=== PATIENT | female | born 1960 | race Caucasian/White ===

== ENCOUNTER 2017-02-03 13:10 | Inpatient (IN) | payer SELFPAY ==
[~2017-02-03] VITALS: Ht 157.5 cm; Wt 56.6 kg
[2017-02-03] VITALS (8 sets, daily range): BP systolic 105–140; BP diastolic 55–67; PULSE 80–94; RESP 20–30; TEMP 97.4; O2SAT 93–100
[~2017-02-03 13:10] MED LIST: ASPI81TA82 PO; GABA100C2 PO; HYOS0.129 SL; OMPR20CCR PO; PERC5TAB12 PO; PROZ40CA PO; SUCR1 PO; TRAZ100 PO; TYLCOD5S PO; XANA1TAB6 PO; ZOFR8TAB PO
--- NOTE | 2017-02-03 14:24 | PD ---
HPI Chief Complaint: Respiratory Symptoms Time Seen by Provider: 14:15 Travel History International Travel<30 days: No Contact w/Intl Traveler<30days: No Traveled to known affect area: No History of Present Illness HPI 56-year-old female with reported history of COPD, smoker, here for evaluation of shortness of breath and left mid/upper back pain. The patient reports that she fell onto her back about a week ago, and since that time she has been having left mid/upper back pain. She reports that for the last 3 days she has been having shortness of breath that is not improving with her Ventolin. No fevers. No cough. Patient is very tearful. She appears to be in significant respiratory distress, however when answering questions, she answers in full sentences and does not appear to be in distress when speaking. PFSH Past Medical History Anxiety: Yes Depression: No Cancer: Yes (STOMACH CA) Cardiovascular Problems: No Cerebrovascular Accident: No Diminished Hearing: No Endocrine: No Gastrointestinal Disorders: Yes GERD: No Genitourinary: No Hiatal Hernia: No Musculoskeletal: No Neurologic: Yes (FIBROMYALGIA) Psychiatric: Yes (PTSD) Reproductive: No Respiratory: Yes (COPD) Migraines: No Seizures: No Ulcer: Yes (PRECANCEROUS CELLS, HUDSON'S ESOPHAGITIS. HX H PYLORI) Tetanus Vaccination: > 5 Years Influenza Vaccination: Yes ?: Not Menopausal: Yes Past Surgical History Abdominal Surgery: Yes (PARTIAL GASTRECTOMY / JAIRON) AICD: No Appendectomy: Yes Arteriovenous Shunt: No Cardiac Surgery: No Cholecystectomy: Yes Ear Surgery: No Endocrine Surgery: No Eye Surgery: No Genitourinary Surgery: No Gynecologic Surgery: Yes (HYSTERECTOMY) Hysterectomy: Yes Insulin Pump: No Joint Replacement: No Neurologic Surgery: No Oral Surgery: No Pacemaker: No Thoracic Surgery: No Other Surgery: Yes (FACIAL RECONSTRUCTION) Social History Alcohol Use: Yes (SOCIAL) Tobacco Use: Yes (1/2 PPD) Substance Use: No Allergies-Medications (Allergen,Severity, Reaction): Coded Allergies: Flexeril (Verified Allergy, Severe, Fatigue, 02/03/17) Penicillin (Verified Allergy, Unknown, does not know, 02/03/17) Tetracycline (Verified Allergy, Unknown, does not know, 02/03/17) Levaquin (Verified Adverse Reaction, Severe, Hallucinations, 02/03/17) Reported Meds & Prescriptions Reported Meds & Active Scripts Active Reported Ventolin Hfa 18 GM Inh (Albuterol Sulfate) 90 Mcg/Act Aer 1 Puff INH Q4H PRN Xanax (Alprazolam) 1 Mg Tab 1 Mg PO BID PRN Aspirin 81 Mg Chew 81 Mg CHEW DAILY Prozac (Fluoxetine HCl) 40 Mg Cap 40 Mg PO BID Neurontin (Gabapentin) 100 Mg Cap 100 Mg PO BID Levsin (Hyoscyamine Sulfate) 0.125 Mg Tab 0.125 Mg PO Q6H Prilosec (Omeprazole Magnesium) 20 Mg Tab 1 Cap PO DAILY Sucralfate 1 Gm Tab 1 Gm PO BID on empty stomach Trazodone (Trazodone HCl) 100 Mg Tablet 100 Mg PO HS Review of Systems Except as stated in HPI: all other systems reviewed are Neg Physical Exam Narrative GENERAL: Well-developed, thin, appears to be in respiratory distress with tachypnea and deep inspiratory efforts, however when answering questions, this respiratory distress/effort seems to improve SKIN: Focused skin assessment warm/dry. HEAD: Atraumatic. Normocephalic. EYES: Pupils equal and round. No scleral icterus. No injection or drainage. ENT: Mucous membranes pink and moist. NECK: Trachea midline. No JVD. CARDIOVASCULAR: Regular rate and rhythm. No murmur appreciated. RESPIRATORY: No accessory muscle use. Clear to auscultation. Breath sounds equal bilaterally. Appears to be in respiratory distress with tachypnea and deep inspiratory efforts, however when answering questions, this respiratory distress/effort seems to improve GASTROINTESTINAL: Abdomen soft, non-tender, nondistended. MUSCULOSKELETAL: No obvious deformities. No clubbing. No cyanosis. No edema. Left upper/posterior rib tenderness without step-off, without crepitus, without paradoxical chest wall movement. No midline vertebral step off or tenderness. NEUROLOGICAL: Awake and alert. No obvious cranial nerve deficits. Motor grossly within normal limits. Normal speech. PSYCHIATRIC: Appropriate mood and affect; insight and judgment normal. Data Data Last Documented VS Vital Signs Date Time Temp Pulse Resp B/P Pulse Ox O2 Delivery O2 Flow Rate FiO2 02/03/17 15:24 89 30 140/56 100 Room Air 02/03/17 13:23 97.4 Orders Complete Blood Count With Diff (02/03/17 14:19) Comprehensive Metabolic Panel (02/03/17 14:19) Iv Access Insert/Monitor (02/03/17 14:19) Ecg Monitoring (02/03/17 14:19) Oximetry (02/03/17 14:19) Oxygen Administration (02/03/17 14:19) Chest, Single Ap (02/03/17 14:19) Ct Pulmonary Angiogram (02/03/17 14:19) Sodium Chloride 0.9% Flush (Ns Flush) (02/03/17 14:30) Methylprednisolone So Succ Inj (Solumedr (02/03/17 14:30) Albuterol-Ipratropium Neb (Duoneb Neb) (02/03/17 14:30) Morphine Inj (Morphine Inj) (02/03/17 14:30) Electrocardiogram (02/03/17 ) Ckmb (Isoenzyme) Profile (02/03/17 15:22) Troponin I (02/03/17 15:22) Iohexol 350 Inj (Omnipaque 350 Inj) (02/03/17 15:46) CKMB (02/03/17 14:30) CKMB% (02/03/17 14:30) Potassium Chlor 20 Meq Premix (Kcl 20 Me (02/03/17 16:15) Potassium Chloride (Kcl) (02/03/17 16:15) Labs Laboratory Tests Test 02/03/17 14:30 White Blood Count 18.6 TH/MM3 Red Blood Count 4.92 MIL/MM3 Hemoglobin 14.1 GM/DL Hematocrit 41.7 % Mean Corpuscular Volume 84.8 FL Mean Corpuscular Hemoglobin 28.7 PG Mean Corpuscular Hemoglobin 33.9 % Concent Red Cell Distribution Width 15.4 % Platelet Count 349 TH/MM3 Mean Platelet Volume 7.8 FL Neutrophils (%) (Auto) 75.7 % Lymphocytes (%) (Auto) 15.8 % Monocytes (%) (Auto) 7.2 % Eosinophils (%) (Auto) 0.9 % Basophils (%) (Auto) 0.4 % Neutrophils # (Auto) 14.1 TH/MM3 Lymphocytes # (Auto) 2.9 TH/MM3 Monocytes # (Auto) 1.3 TH/MM3 Eosinophils # (Auto) 0.2 TH/MM3 Basophils # (Auto) 0.1 TH/MM3 CBC Comment DIFF FINAL Differential Comment Sodium Level 141 MEQ/L Potassium Level 2.2 MEQ/L Chloride Level 103 MEQ/L Carbon Dioxide Level 22.8 MEQ/L Anion Gap 15 MEQ/L Blood Urea Nitrogen 4 MG/DL Creatinine 0.76 MG/DL Estimat Glomerular Filtration 78 ML/MIN Rate Random Glucose 87 MG/DL Calcium Level 8.4 MG/DL Total Bilirubin 0.3 MG/DL Aspartate Amino Transf 30 U/L (AST/SGOT) Alanine Aminotransferase 16 U/L (ALT/SGPT) Alkaline Phosphatase 163 U/L Total Creatine Kinase 184 U/L Creatine Kinase MB 1.4 NG/ML Troponin I LESS THAN 0.02 NG/ML Total Protein 7.1 GM/DL Albumin 3.1 GM/DL [facility] Medical Decision Making Medical Screen Exam Complete: Yes Emergency Medical Condition: Yes Medical Record Reviewed: Yes Differential Diagnosis COPD exacerbation, pneumonia, rib fracture, PE, Narrative Course Initial vital signs show heart rate 80, blood pressure 105/55, pulse ox 97% on room air, oral temp of 97.4F. Repeat vital signs show heart rate 89, blood pressure 140/56, pulse ox 100% on room air. CBC shows WBC 18.6, hemoglobin 14.1, hematocrit 41.7, platelets 349, neutrophils 75.7%. CMP is remarkable for potassium 2.2, otherwise unremarkable. Cardiac enzymes are negative. Chest x-ray: Normal exam. CT pulmonary angiogram: CONCLUSION: Normal examination. Patient written for 40 mEq of IV potassium and 20 mEq of oral potassium. Patient was given 3 DuoNeb treatments and IV Solu-Medrol. On reassessment she was made aware of all findings. She is still very tachypneic until when she speaks when her tachypnea seems to resolve and she is able to speak full sentences. Again her lung sounds are clear. Patient admits to feeling somewhat anxious and that she is out of her Xanax. She will be admitted for further treatment and evaluation of hypokalemia, tachypnea, and dyspnea. Case discussed with the patient's primary care physician Dr. Betancourt who will admit the patient to his service. Diagnosis Primary Impression: Dyspnea Qualified Code: R06.00 - Dyspnea, unspecified type Additional Impressions: Hypokalemia Tachypnea Melvin Harvey MD Feb 03, 2017 14:24
[2017-02-03] MEDS ORDERED: VENTAER INH (14:26)
[2017-02-03] MEDS ORDERED: SUCR1TAB PO (14:26)
[2017-02-03] MEDS ORDERED: NEUR100C PO (14:26)
[2017-02-03] MEDS ORDERED: TRAZ100T6 PO (14:26)
[2017-02-03] MEDS ORDERED: PRIL20TA2 PO (14:26)
[2017-02-03] MEDS ORDERED: XANA1TAB2 PO (14:26)
[2017-02-03] MEDS ORDERED: LEVS0.123 PO (14:26)
[2017-02-03] MEDS ORDERED: PROZ40CA PO (14:26)
[2017-02-03] MEDS ORDERED: ASPI81CH CHEW (14:26)
[2017-02-03] MEDS ORDERED: SODIUM CHLORIDE 0.9% FLUSH 10 ML FLUSH IVF PRN ×2 (14:30→16:45)
[2017-02-03] MEDS: RESP: ALBUTEROL 2.5 MG/IPRATROPIUM 0.5 MG NEB (SCH) INH (14:30)
[2017-02-03] MEDS ORDERED: MORPHINE SULFATE 8 MG/ML INJ IV PUSH ONE ×2 (14:30→16:45)
[2017-02-03] MEDS ORDERED: methylPREDNISolone SOD SUCC 125 MG/2 ML VIAL IVP ONE (14:30)
[2017-02-03 14:40] LABS: AUTOMATED NEUTROPHIL # 14.1 TH/MM3 (1.8-7.7); BASOPHIL # 0.1 TH/MM3 (0-0.2); BASOPHIL % 0.4 % (0.0-2.0); EOSINOPHIL # 0.2 TH/MM3 (0-0.4); EOSINOPHIL % 0.9 % (0.0-4.0); HEMATOCRIT 41.7 % (35.0-46.0); LYMPH % 15.8 % (9.0-44.0); LYMPHOCYTE # 2.9 TH/MM3 (1.0-4.8); MEAN CELL VOLUME 84.8 FL (80.0-100.0); MEAN CORPUSCULAR HEMOGLOBIN 28.7 PG (27.0-34.0); MEAN CORPUSCULAR HGB CONC 33.9 % (32.0-36.0); MONO % 7.2 % (0.0-8.0); NEUT % 75.7 % (16.0-70.0); PLATELET COUNT 349 TH/MM3 (150-450); RED BLOOD COUNT 4.92 MIL/MM3 (4.00-5.30); RED CELL DISTRIBUTION WIDTH 15.4 % (11.6-17.2); WHITE BLOOD COUNT 18.6 TH/MM3 (4.0-11.0)
--- NOTE | 2017-02-03 14:46 | RADRPT ---
EXAM DATE/TIME: 02/03/2017 14:26 [facility] COMPARISON: CHEST SINGLE AP, January 10, 2015, 21:27. CHEST PA & LAT, March 29, 2015, 19:05. INDICATIONS : Short of breath MEDICAL HISTORY : Chronic obstructive pulmonary disease. Fibromyalgia, barretts esophagitis SURGICAL HISTORY : None. ENCOUNTER: Initial ACUITY: 3 days PAIN SCORE: 0/10 LOCATION: Bilateral chest FINDINGS: A single view of the chest demonstrates the lungs to be symmetrically aerated without evidence of mas s, infiltrate or effusion. The cardiomediastinal contours are unremarkable. Osseous structures are intact. CONCLUSION: Normal examination. Celestine Beth MD on February 03, 2017 at 14:44 Board Certified Radiologist. This report was verified electronically.
[2017-02-03 15:03] LABS: HEMO FLAGS DIFF FINAL
[2017-02-03 15:16] LABS: ALKALINE PHOSPHATASE 163 U/L (45-117); ALT (GPT) 16 U/L (10-53); ANION GAP 15 MEQ/L (5-15); AST (GOT) 30 U/L (15-37); BICARBONATE 22.8 MEQ/L (21.0-32.0); BLOOD UREA NITROGEN 4 MG/DL (7-18); CHLORIDE 103 MEQ/L (98-107); GLOMERULAR FILTRATION RATE 78 ML/MIN (>89); SODIUM (NA) 141 MEQ/L (136-145); TOTAL BILIRUBIN ADULT 0.3 MG/DL (0.2-1.0)
[2017-02-03 15:18] LABS: POTASSIUM 2.2 MEQ/L (3.5-5.1)
[2017-02-03] MEDS ORDERED: IOHEXOL 350 MG/ML 10 ML VIAL (for RAD DIAG) IV ONE (15:46)
--- NOTE | 2017-02-03 15:53 | RADRPT ---
EXAM DATE/TIME: 02/03/2017 15:29 This report includes an Addendum and supersedes previous reports for this exam. [facility] COMPARISON: No previous studies available for comparison. INDICATIONS : Short of breath. IV CONTRAST: 65 cc Omnipaque 350 (iohexol) IV RADIATION DOSE: 6.34 CTDIvol (mGy) MEDICAL HISTORY : Chronic obstructive pulmonary disease. Stomach cancer. Barretts esophagus. SURGICAL HISTORY : Cholecystectomy. Hysterectomy.Partial gastrectomy. ENCOUNTER: Initial ACUITY: 3 days PAIN SCALE: 0/10 LOCATION: chest TECHNIQUE: Volumetric scanning of the chest was performed using a pulmonary embolism protocol MIP images were re constructed. Using automated exposure control and adjustment of the mA and/or kV according to patien t size, radiation dose was kept as low as reasonably achievable to obtain optimal diagnostic quality images. DICOM format image data is available electronically for review and comparison. Follow-up recommendations for incidentally detected pulmonary nodules are based at a minimum on nodul e size and patient risk factors according to Fleischner Society Guidelines. FINDINGS: PULMONARY ARTERIES: No filling defects are seen in the pulmonary arteries through the segmental level. LUNGS: There is no consolidation or pneumothorax . No concerning pulmonary nodule is visualized. PLEURAE: There is no pleural thickening or pleural effusion. MEDIASTINUM: There is good visualization of the great vessels of the middle mediastinum. No evidence of mediastin al or hilar adenopathy/mass. MUSCULOSKELETAL: Within normal limits for patient age. MISCELLANEOUS: The visualized upper abdominal organs demonstrate no acute abnormality. CONCLUSION: Normal examination. Celestine Beth MD on February 03, 2017 at 15:51 Board Certified Radiologist. This report was verified electronically. ADDENDUM: The patient has numerous healed fractures in the left anterior chest wall, all clearly chronic. Celestine Beth MD on February 03, 2017 at 16:36 Board Certified Radiologist. This report was verified electronically.
[2017-02-03 16:03] LABS: CREATINE KINASE 184 U/L (26-192)
[2017-02-03] MEDS ORDERED: POTASSIUM CHLORIDE 20 MEQ CONTROLLED RELEASE TAB PO ONE (16:15)
[2017-02-03 16:16] LABS: CKMB 1.4 NG/ML (0.5-3.6)
[2017-02-03] MEDS: POTASSIUM CHLOR 20 MEQ PREMIX 100 ML IV SCH ×2 (16:18→19:31)
--- NOTE | 2017-02-03 18:23 | RADRPT ---
EXAM DATE/TIME: 02/03/2017 15:29 [facility] COMPARISON: CHEST PA & LAT, January 03, 2016, 20:20. CT PULMONARY ANGIOGRAM, February 03, 2017, 15:29. INDICATIONS : Mid back pain. RADIATION DOSE: ; Reconstructed from previous dataset, no dose MEDICAL HISTORY : None Chronic obstructive pulmonary disease. Stomach cancer. Barretts esophagus. SURGICAL HISTORY : Cholecystectomy. Hysterectomy.Partial gastrectomy. ENCOUNTER: Initial ACUITY: 3 days PAIN SCALE: 4/10 LOCATION: spine TECHNIQUE: Volumetric scanning of the thoracic spine was performed. Multiplanar reconstructions in the sagittal , coronal and oblique axial planes were performed. Using automated exposure control and adjustment o f the mA and/or kV according to patient size, radiation dose was kept as low as reasonably achievable to obtain optimal diagnostic quality images. DICOM format image data is available electronically f or review and comparison. FINDINGS: There is a mild superior endplate compression fracture of the T12 vertebral body identified. There is mild disc space narrowing and multilevel anterior osteophyte formation noted. Bone density is decrea sed. There is no canal or definite foraminal stenosis. CONCLUSION: 1. Acute to subacute appearing compression fracture of the T12 vertebral body superior endplate with mild loss of vertebral body height. Blas Suazo MD on February 03, 2017 at 18:20 Board Certified Radiologist. This report was verified electronically.
[2017-02-03] MEDS: LORazepam 0.5 MG TAB PO PRN (20:49)
[2017-02-03] MEDS: ACETAMINOPHEN/HYDROcodone 325 MG/5 MG TAB PO PRN (20:49)
[2017-02-03] MEDS: SODIUM CHLORIDE 0.9% FLUSH 10 ML FLUSH IV FLUSH SCH (21:00)
[2017-02-03] MEDS ORDERED: POTASSIUM CHLORIDE 25 MEQ EFFERVESCENT TAB PO ONE (23:45)
[2017-02-04] VITALS (7 sets, daily range): BP systolic 97–126; BP diastolic 55–87; PULSE 72–96; RESP 18–20; TEMP 97–98.1; O2SAT 91–96
[2017-02-04] MEDS: ACETAMINOPHEN/HYDROcodone 325 MG/5 MG TAB PO PRN ×4 (01:24→16:09)
[2017-02-04] MEDS: LORazepam 0.5 MG TAB PO PRN ×2 (04:13→17:38)
[2017-02-04] MEDS: SODIUM CHLORIDE 0.9% FLUSH 10 ML FLUSH IV FLUSH SCH ×2 (08:33→20:59)
[2017-02-04] MEDS ORDERED: MISCELLANEOUS PHARMACY INFORMATION OTHER ONE (09:00)
[2017-02-04 10:05] LABS: POTASSIUM 3.3 MEQ/L (3.5-5.1)
[2017-02-04 12:15] LABS: HEMATOCRIT 38.1 % (35.0-46.0); MEAN CELL VOLUME 86.5 FL (80.0-100.0); MEAN CORPUSCULAR HEMOGLOBIN 28.6 PG (27.0-34.0); MEAN CORPUSCULAR HGB CONC 33.1 % (32.0-36.0); PLATELET COUNT 272 TH/MM3 (150-450); RED CELL DISTRIBUTION WIDTH 16.4 % (11.6-17.2); REVIEW FLAG FINAL; WHITE BLOOD COUNT 16.9 TH/MM3 (4.0-11.0)
--- NOTE | 2017-02-04 15:35 | RADRPT ---
EXAM DATE/TIME: 02/04/2017 15:38 [facility] COMPARISON: No previous studies available for comparison. INDICATIONS : Fracture. MEDICAL HISTORY : Gastroparesis. Ca's esophagus. SURGICAL HISTORY : Cholecystectomy. Appendectomy. Hysterectomy. Gastroplasty. Tonsils. Jaw reconstruction. ENCOUNTER: Subsequent ACUITY: 2 day PAIN SCORE: 6/10 LOCATION: mid back. TECHNIQUE: Multiplanar multisequence MRI of the thoracic spine was performed. FINDINGS: VERTEBRA: There is mild fracture along the superior endplate at T12. Slight retropulsion of posterior fragments but no canal stenosis. There is edema along the endplate at T12. No other fractures are seen. The sp aces are maintained. Homogeneous marrow signal. ALIGNMENT: Normal. CORD: Normal position and configuration. T1-T2: Normal. T2-T3: The thecal sac has a normal diameter. No evidence of disc bulge or protrusion. T3-T4: The thecal sac has a normal diameter. No evidence of disc bulge or protrusion. T4-T5: The thecal sac has a normal diameter. No evidence of disc bulge or protrusion. T5-T6: The thecal sac has a normal diameter. No evidence of disc bulge or protrusion. T6-T7: The thecal sac has a normal diameter. No evidence of disc bulge or protrusion. T7-T8: The thecal sac has a normal diameter. No evidence of disc bulge or protrusion. T8-T9: The thecal sac has a normal diameter. No evidence of disc bulge or protrusion. T9-T10: The thecal sac has a normal diameter. No evidence of disc bulge or protrusion. T10-T11: The thecal sac has a normal diameter. No evidence of disc bulge or protrusion. T11-T12: Mild broad-based disc bulge without canal stenosis. T12-L1: The thecal sac has a normal diameter. No evidence of disc bulge or protrusion. CONCLUSION: 1. Mild superior endplate compression fracture at T12 which is acute/subacute with minimal retropulsi on of posterior fragments but no significant canal stenosis. 2. Mild broad-based bulge at T11-12 without canal stenosis. 3. The remainder of the thoracic spine is normal. Joni Sky MD on February 04, 2017 at 15:25 Board Certified Radiologist. This report was verified electronically.
[2017-02-04] MEDS ORDERED: RESP: ALBUTEROL 2.5 MG/3 ML NEB (PRN) INH (15:45)
--- NOTE | 2017-02-04 15:46 | HHI.HP ---
History of Present Illness Service Family medicine Primary Care Physician Yuval Betancourt, DO Admission Diagnosis dyspnea, hypokalemia, tachypnea Diagnoses: History of Present Illness 56-year-old female with reported history of COPD, smoker, here for evaluation of shortness of breath and left mid/upper back pain. The patient reports that she fell onto her back about a week ago, and since that time she has been having left mid/upper back pain. She reports that for the last 3 days she has been having shortness of breath that is not improving with her Ventolin. No fevers. No cough. Review of Systems Constitutional: COMPLAINS OF: Fatigue, DENIES: Fever, Weight loss Respiratory: COMPLAINS OF: Wheezing, Shortness of breath, DENIES: Cough Cardiovascular: DENIES: Chest pain, Palpitations, Lower Extremity Edema Gastrointestinal: DENIES: Abdominal pain, Constipation, Diarrhea Genitourinary: DENIES: Urinary incontinence, Dysuria Neurologic: COMPLAINS OF: Poor Balance Psychiatric: COMPLAINS OF: Anxiety Past Family Social History Allergies: Coded Allergies: Flexeril (Verified Allergy, Severe, Fatigue, 02/03/17) Penicillin (Verified Allergy, Unknown, does not know, 02/03/17) Tetracycline (Verified Allergy, Unknown, does not know, 02/03/17) Levaquin (Verified Adverse Reaction, Severe, Hallucinations, 02/03/17) Past Medical History Anxiety Stomach CA Gastroparesis Fibromyalgia COPD Barretts exophagitis Past Surgical History partial gastrectomy/calvin appendectomy cholecystectomy Hysterectomy Reported Medications Current Medications Medications (Trade) Dose Ordered Sig/Alondra Route Start Time Stop Time Status Last Admin (NS Flush) 2 ml BID IV FLUSH 02/03/17 21:00 02/04/17 08:33 (NS Flush) 2 ml UNSCH PRN IVF 02/03/17 16:45 ([place] 5-325 Mg) 1 tab Q4H PRN PO 02/03/17 20:15 02/04/17 10:25 (Ativan) 0.5 mg Q8H PRN PO 02/03/17 20:15 02/04/17 04:13 Active Ordered Medications Current Medications Medications (Trade) Dose Ordered Sig/Alondra Route Start Time Stop Time Status Last Admin (NS Flush) 2 ml BID IV FLUSH 02/03/17 21:00 02/04/17 08:33 (NS Flush) 2 ml UNSCH PRN IVF 02/03/17 16:45 ([place] 5-325 Mg) 1 tab Q4H PRN PO 02/03/17 20:15 02/04/17 10:25 (Ativan) 0.5 mg Q8H PRN PO 02/03/17 20:15 02/04/17 04:13 Social History Active smoker - 1/2 pk per day No ETOH use [facility] [place] [facility] Physical Exam Vital Signs Vital Signs Date Time Temp Pulse Resp B/P Pulse Ox O2 Delivery O2 Flow Rate FiO2 02/04/17 12:00 98.1 78 18 121/87 93 02/04/17 08:00 97.8 87 18 117/68 91 02/04/17 06:23 20 02/04/17 05:32 97.0 83 20 121/70 92 02/04/17 02:57 90 20 93 02/04/17 01:26 96 18 126/74 92 Room Air 02/03/17 23:37 90 20 126/66 93 02/03/17 21:55 94 20 131/67 94 Room Air 02/03/17 21:38 96 21 02/03/17 19:32 94 20 133/67 96 Room Air 02/03/17 18:00 89 24 98 Room Air 02/03/17 17:44 89 22 140/64 98 Room Air 02/03/17 15:24 89 30 140/56 100 Room Air Physical Exam General: Alert and cooperative SKIN: Focused skin assessment warm/dry. HEAD: Atraumatic. Normocephalic. EYES: Pupils equal and round. No scleral icterus. No injection or drainage. ENT: Mucous membranes pink and moist. NECK: Trachea midline. No JVD. CARDIOVASCULAR: Regular rate and rhythm. No murmur appreciated. RESPIRATORY: No accessory muscle use. Clear to auscultation. Breath sounds equal bilaterally. Appears to be in respiratory distress with tachypnea and deep inspiratory efforts, however when answering questions, this respiratory distress/effort seems to improve GASTROINTESTINAL: Abdomen soft, non-tender, nondistended. MUSCULOSKELETAL: No obvious deformities. No clubbing. No cyanosis. No edema. Left upper/posterior rib tenderness without step-off, without crepitus, without paradoxical chest wall movement. No midline vertebral step off or tenderness. NEUROLOGICAL: Awake and alert. No obvious cranial nerve deficits. Motor grossly within normal limits. Normal speech. PSYCHIATRIC: Appropriate mood and affect; insight and judgment normal. Laboratory Laboratory Tests Test 02/03/17 02/04/17 02/04/17 23:11 08:55 11:34 Potassium Level 3.0 3.3 Sodium Level 140 Chloride Level 106 Carbon Dioxide Level 28.0 Anion Gap 6 Blood Urea Nitrogen 8 Creatinine 0.48 Estimat Glomerular Filtration 133 Rate Random Glucose 85 Calcium Level 8.8 White Blood Count 16.9 Red Blood Count 4.40 Hemoglobin 12.6 Hematocrit 38.1 Mean Corpuscular Volume 86.5 Mean Corpuscular Hemoglobin 28.6 Mean Corpuscular Hemoglobin 33.1 Concent Red Cell Distribution Width 16.4 Platelet Count 272 Mean Platelet Volume 7.9 Result Diagram: 02/04/17 1134 02/04/17 0855 Imaging Last 72 hours Impressions Chest X-Ray 02/03/17 1419 Signed Impressions: Service Date/Time: Friday, February 03, 2017 14:26 - CONCLUSION: Normal examination. Celestine Beth MD CT Angiography 02/03/17 1419 Signed Impressions: Service Date/Time: Friday, February 03, 2017 15:29 - CONCLUSION: Normal examination. Celestine Beth MD ADDENDUM: The patient has numerous healed fractures in the left anterior chest wall, all clearly chronic. Celestine Beth MD Thoracic Spine CT 02/03/17 0000 Signed Impressions: Service Date/Time: Friday, February 03, 2017 15:29 - CONCLUSION: 1. Acute to subacute appearing compression fracture of the T12 vertebral body superior endplate with mild loss of vertebral body height. Blas Suazo MD Assessment and Plan Problem List: (1) T12 compression fracture Status: Acute Plan: Patient with a acute T12 vertebral compression fracture. MRI today results pending. Plan for kyphoplasty tomorrow (2) Hypokalemia Status: Acute Plan: Potassium level 3.3 today with 40 MEQ of KCL ordered and replacement added daily. (3) Anxiety Status: Acute Plan: Ativan ordered PRN per MD (4) Gastroparesis Status: Acute Plan: Continue current treatment. No abdominal discomfort noted. (5) COPD exacerbation Status: Acute Plan: WBC elevated at 16.1. Patient admitted with SOB for 3 days. Rocephin ordered daily and breathing treatments. Assessment and Plan Assessment and plan discussed with Dr. Betancourt Discussed Condition With Nursing Discharge Planning Home with [facility] Physician Attestation I and the WEB DEVELOPER have both examined this patient and reviewed this note and I agree with these findings and plan of care. Naina Holder. GILBERT Feb 04, 2017 15:46
[2017-02-04] MEDS ORDERED: POTASSIUM CHLORIDE 20 MEQ CONTROLLED RELEASE TAB PO ONE (16:00)
[2017-02-04] MEDS ORDERED: ALBUTEROL SULFATE 90 MCG/ACT HFA 8 GM INHALER INH PRN (16:00)
[2017-02-04] MEDS: HYOSCYAMINE 0.125 MG TAB PO SCH ×2 (16:09→20:59)
[2017-02-04] MEDS: cefTRIAXone INJ 1,000 MG in SODIUM CHLORIDE 0.9% INJ 100 ML IV SCH (17:38)
--- NOTE | 2017-02-04 19:10 | EKG ---
Date Performed: 02/03/2017 Time Performed: 14:36:42 PTAGE: 56 years EKG: Sinus rhythm POSSIBLE LEFT ATRIAL ENLARGEMENT NONSPECIFIC ST & T-WAVE ABNORMALITY BORDERLINE ECG BASELINE ARTIFAC T AFFECTS READ INTERPRETATION BASED ON A DEFAULT AGE OF 40 YEARS Compared to the PREVIOUS TRACING from 10/25/15, probably no change but difficult with baseline artifact DOCTOR: Ramin Roberson Interpretating Date/Time 02/04/2017 19:09:32
[2017-02-04] MEDS: methylPREDNISolone SOD SUCC 40 MG/1 ML VIAL IV PUSH SCH (19:52)
[2017-02-04] MEDS: oxyCODONE/ACETAMINOPHEN 10 MG/325 MG TAB PO PRN (19:52)
[2017-02-04] MEDS: GABAPENTIN 100 MG CAP PO SCH (20:59)
[2017-02-04] MEDS: traZODone HCL 100 MG TAB PO SCH (20:59)
[2017-02-04] MEDS: FLUoxetine HCL 20 MG CAP PO SCH (20:59)
[2017-02-04] MEDS: SUCRALFATE 1 GM TAB PO SCH (20:59)
[2017-02-05] VITALS (9 sets, daily range): BP systolic 98–135; BP diastolic 55–82; PULSE 58–88; RESP 15–18; TEMP 97.8–98.8; O2SAT 91–98
[2017-02-05] MEDS: methylPREDNISolone SOD SUCC 40 MG/1 ML VIAL IV PUSH SCH ×3 (01:29→21:10)
[2017-02-05] MEDS: HYOSCYAMINE 0.125 MG TAB PO SCH ×5 (04:59→21:10)
[2017-02-05 08:31] LABS: AUTOMATED NEUTROPHIL # 9.6 TH/MM3 (1.8-7.7); BASOPHIL % 0.1 % (0.0-2.0); HEMATOCRIT 40.1 % (35.0-46.0); HEMO FLAGS DIFF FINAL; LYMPH % 8.7 % (9.0-44.0); LYMPHOCYTE # 0.9 TH/MM3 (1.0-4.8); MEAN CELL VOLUME 86.8 FL (80.0-100.0); MEAN CORPUSCULAR HEMOGLOBIN 29.2 PG (27.0-34.0); MEAN CORPUSCULAR HGB CONC 33.6 % (32.0-36.0); MONO % 2.5 % (0.0-8.0); NEUT % 88.7 % (16.0-70.0); PLATELET COUNT 274 TH/MM3 (150-450); RED BLOOD COUNT 4.62 MIL/MM3 (4.00-5.30); RED CELL DISTRIBUTION WIDTH 16.7 % (11.6-17.2); WHITE BLOOD COUNT 10.8 TH/MM3 (4.0-11.0)
[2017-02-05] MEDS: GABAPENTIN 100 MG CAP PO SCH ×2 (08:46→21:10)
[2017-02-05] MEDS: PANTOPRAZOLE SOD 20 MG DELAYED RELEASE TAB PO SCH (08:47)
[2017-02-05] MEDS: FLUoxetine HCL 20 MG CAP PO SCH ×2 (08:48→21:10)
[2017-02-05] MEDS: SUCRALFATE 1 GM TAB PO SCH ×2 (08:48→21:10)
[2017-02-05] MEDS: SODIUM CHLORIDE 0.9% FLUSH 10 ML FLUSH IV FLUSH SCH ×2 (08:49→21:00)
[2017-02-05 09:00] LABS: POTASSIUM 4.4 MEQ/L (3.5-5.1)
[2017-02-05] MEDS ORDERED: POTASSIUM CHLORIDE 20 MEQ CONTROLLED RELEASE TAB PO SCH (09:00)
[2017-02-05] MEDS: oxyCODONE/ACETAMINOPHEN 10 MG/325 MG TAB PO PRN ×2 (12:37→21:11)
[2017-02-05] MEDS: LORazepam 0.5 MG TAB PO PRN ×2 (12:41→21:11)
[2017-02-05 12:52] LABS: PROTHROMBIN TIME - PATIENT 10.9 SEC (9.8-11.6)
[2017-02-05] MEDS ORDERED: MIDAZOLAM HCL 5 MG/5 ML VIAL ONE (13:20)
[2017-02-05] MEDS ORDERED: fentaNYL CITRATE 250 MCG/5 ML AMP ONE (13:21)
[2017-02-05] MEDS ORDERED: BUPIVACAINE HCL PF 0.75% 30 ML VIAL ONE (13:54)
[2017-02-05] MEDS ORDERED: VANCOMYCIN HCL 1000 MG VIAL ONE (14:04)
[2017-02-05] MEDS ORDERED: SODIUM CHLOR 0.9% 250 ML INJ 250 ML ONE (14:07)
[2017-02-05] MEDS ORDERED: MIDAZOLAM HCL 2 MG/2 ML VIAL ONE (14:21)
--- NOTE | 2017-02-05 14:56 | HHI.PR ---
Subjective Remarks Patient denies any CP or SOB. Back discomfort noted Objective Vital Signs Date Time Temp Pulse Resp B/P Pulse Ox O2 Delivery O2 Flow Rate FiO2 02/05/17 08:02 68 02/05/17 08:00 98.8 66 15 121/67 91 02/05/17 06:00 98.7 88 18 120/82 98 02/05/17 00:00 97.8 83 18 114/78 93 02/04/17 20:00 87 02/04/17 20:00 97.8 72 18 97/55 93 02/04/17 16:00 97.8 79 18 109/55 96 I/O 02/04/17 02/04/17 02/04/17 02/05/17 02/05/17 02/05/17 07:00 15:00 23:00 07:00 15:00 23:00 Intake Total 0 ml Balance 0 ml IV Total 0 ml # Voids 1 Result Diagram: 02/05/17 0752 02/05/17 0752 Imaging Last 72 hours Impressions Thoracic Spine MRI 02/04/17 0000 Signed Impressions: Service Date/Time: Saturday, February 04, 2017 15:38 - CONCLUSION: 1. Mild superior endplate compression fracture at T12 which is acute/subacute with minimal retropulsion of posterior fragments but no significant canal stenosis. 2. Mild broad-based bulge at T11-12 without canal stenosis. 3. The remainder of the thoracic spine is normal. Joni Sky MD Chest X-Ray 02/03/17 1419 Signed Impressions: Service Date/Time: Friday, February 03, 2017 14:26 - CONCLUSION: Normal examination. Celestine Beth MD CT Angiography 02/03/17 141 Signed Impressions: Service Date/Time: Friday, February 03, 2017 15:29 - CONCLUSION: Normal examination. Celestine Beth MD ADDENDUM: The patient has numerous healed fractures in the left anterior chest wall, all clearly chronic. Celestine Beth MD Thoracic Spine CT 02/03/17 0000 Signed Impressions: Service Date/Time: Friday, February 03, 2017 15:29 - CONCLUSION: 1. Acute to subacute appearing compression fracture of the T12 vertebral body superior endplate with mild loss of vertebral body height. Blas Suazo MD Other Results GENERAL: Alert and cooperative SKIN: Warm and dry. HEAD: Normocephalic. EYES: No scleral icterus. No injection or drainage. NECK: Supple, trachea midline. No JVD or lymphadenopathy. CARDIOVASCULAR: Regular rate and rhythm without murmurs, gallops, or rubs. RESPIRATORY: Breath sounds equal bilaterally. No accessory muscle use. GASTROINTESTINAL: Abdomen soft, non-tender, nondistended. MUSCULOSKELETAL: No cyanosis, or edema. BACK: Nontender without obvious deformity. No CVA tenderness. Medications and IVs Current Medications Medications (Trade) Dose Ordered Sig/Alondra Route Start Time Stop Time Status Last Admin (NS Flush) 2 ml BID IV FLUSH 02/03/17 21:00 02/05/17 08:49 (NS Flush) 2 ml UNSCH PRN IVF 02/03/17 16:45 (Petoskey 5-325 Mg) 1 tab Q4H PRN PO 02/03/17 20:15 02/04/17 16:09 (Ativan) 0.5 mg Q8H PRN PO 02/03/17 20:15 02/05/17 12:41 (Proair Hfa Inh) 1 puff Q4H PRN INH 02/04/17 16:00 (Neurontin) 100 mg BID PO 02/04/17 21:00 02/05/17 08:46 (Levsin) 0.125 mg Q6H PO 02/04/17 16:00 02/05/17 08:47 (Carafate) 1 gm BID PO 02/04/17 21:00 02/05/17 08:48 (PROzac) 40 mg BID PO 02/04/17 21:00 02/05/17 08:48 (Protonix) 20 mg DAILY PO 02/05/17 09:00 02/05/17 08:47 (Desyrel) 100 mg HS PO 02/04/17 21:00 02/04/17 20:59 (KCl) 20 meq Q12HR PO 02/05/17 09:00 02/05/17 08:49 Methylprednisolone Sodium Succinate 40 mg 40 mg Q6H IV PUSH 02/04/17 20:00 02/05/17 08:59 (Rocephin Inj/NS Inj) 100 ml @ 200 mls/hr Q24H IV 02/04/17 17:00 02/04/17 17:38 (Percocet 10-325 Mg) 1 tab Q4H PRN PO 02/04/17 20:00 02/05/17 12:37 Assessment and Plan Problem List: (1) T12 compression fracture Status: Acute Plan: Patient with a acute T12 vertebral compression fracture. Kyphoplasty for today (2) Hypokalemia Status: Acute Plan: Resolved with potassium 4.4 today. Replacement reduced. (3) Anxiety Status: Acute Plan: Ativan ordered PRN per MD (4) Gastroparesis Status: Acute Plan: Continue current treatment. No abdominal discomfort noted. (5) COPD exacerbation Status: Acute Plan: WBC improved at 10.8. Patient admitted with SOB for 3 days. Rocephin ordered daily and breathing treatments. Steroids reduced to Q 12 hours. Assessment and Plan Assessment and plan discussed with Dr. Betancourt Discussed Condition With Nursing Discharge Planning Will re-assess after kyphoplasty Physician Attestation I and the ACCOUNTANT AUDITOR have both examined this patient and reviewed this note and I agree with these findings and plan of care. Naina Holder. [facility] Feb 05, 2017 14:56
--- NOTE | 2017-02-05 15:05 | PD.RAD ---
Post Procedure Progress Note Pre Procedure Diagnosis: (1) T12 compression fracture Post Procedure Diagnosis: (1) T12 compression fracture Procedure Date: Feb 05, 2017 Supervising Radiologist: Jay Ayon Proceduralist/Assist: Desire Zepeda, RT(R), Alejandrina Coley RT(R)() Anesthesia: Conscious Sedation Plan of Activity Patient to Unit: Nursing Unit Patient Condition: Good Additional Comments: T12 Kyphoplasty with excellent fill See PACS Report for procedural detail/treatment Jay Ayon MD Feb 05, 2017 15:05
--- NOTE | 2017-02-05 16:55 | RADRPT ---
EXAM DATE/TIME: 02/05/2017 13:30 [facility] COMPARISON: No previous studies available for comparison. INDICATIONS : 56 year-old female with history of debilitating lower thoracic pain following minor trauma last week. CT and MRI exams demonstrate acute superior endplate fracture of T12. Patient currently rates pain a s 10/10 with any change in position. Patient denies radiculopathy or bowel/urinary incontinence. Ther efore, T12 kyphoplasty is planned. MEDICAL HISTORY : 1. stomach cancer 2. Gastroparesis 3. Barretts esophagus 4. COPD 5. smoker 6. fibromyalgis SURGICAL HISTORY : 1. Hysterectomy 2. Appendectomy 3. cholecystectomy 4. Partial gastrectomy ENCOUNTER: Initial ACUITY: 3 weeks PAIN SCORE: 6/10 LOCATION: upper back FLUORO TIME: 13.9 minutes IMAGE SERIES: 0 SEDATION TIME: 45 minutes LEVEL: T12 MEDICATION(S): 1.) 5 mg midazolam (Versed) IV 2.) 300 mcg fentanyl (Sublimaze) IV Prophylactic antibiotics were administered with appropriate pre-procedure timing. DEVICE: 1. 5 cc AVAMax bone cement PROCEDURE : 1. Fluoroscopically-guided kyphoplasty. 2. Conscious sedation with continuous EKG and oximetry monitoring. The risks, benefits and alternatives to the procedure were explained and verbal and written consent w as obtained. The site was prepped in sterile fashion. Full sterile technique was used, including ca p, mask, sterile gloves and gown and a large sterile sheet. Hand hygiene and 2% chlorhexidine and/or betadine/alcohol prep was utilized per protocol for cutaneous antisepsis. The skin and subcutaneous tissues were infiltrated with local anesthetic solution. With fluoroscopic guidance via the above described approach access was gained to the T12 vertebral edith dy. Kyphoplasty was performed with cavity creation as above. The prescribed cement volume was place d. Post procedure images demonstrate cement confined to the vertebral body. Conscious sedation was performed with the prescribed dosages and duration as above in the presence of an independent trained radiology nurse to assist in the monitoring of the patient. EKG and oximetry remained stable throughout the procedure. The patient tolerated the procedure well and there were n o complications. The patient was sent to post anesthesia recovery in stable condition. CONCLUSION: Uncomplicated kyphoplasty as above. Jay Ayon MD on February 05, 2017 at 16:51 Board Certified Radiologist. This report was verified electronically.
[2017-02-05] MEDS: cefTRIAXone INJ 1,000 MG in SODIUM CHLORIDE 0.9% INJ 100 ML IV SCH (18:30)
[2017-02-05] MEDS: traZODone HCL 100 MG TAB PO SCH (21:10)
[2017-02-06] VITALS: BP 94/50; PULSE 73; RESP 20; TEMP 97.4; O2SAT 94
[2017-02-06 04:00] VITALS: BP 101/56; PULSE 58; RESP 20; TEMP 97.4; O2SAT 92
[2017-02-06] MEDS: oxyCODONE/ACETAMINOPHEN 10 MG/325 MG TAB PO PRN ×2 (04:12→08:50)
[2017-02-06] MEDS: HYOSCYAMINE 0.125 MG TAB PO SCH ×2 (04:13→08:51)
[2017-02-06 05:51] VITALS: PULSE 55
[2017-02-06 08:00] VITALS: BP 105/57; PULSE 67; RESP 15; TEMP 97.9; O2SAT 92
[2017-02-06 08:34] LABS: AUTOMATED NEUTROPHIL # 13.7 TH/MM3 (1.8-7.7); BASOPHIL % 0.1 % (0.0-2.0); EOSINOPHIL % 0.1 % (0.0-4.0); HEMATOCRIT 39.5 % (35.0-46.0); HEMO FLAGS DIFF FINAL; LYMPH % 13.6 % (9.0-44.0); LYMPHOCYTE # 2.3 TH/MM3 (1.0-4.8); MEAN CELL VOLUME 87.6 FL (80.0-100.0); MEAN CORPUSCULAR HEMOGLOBIN 28.3 PG (27.0-34.0); MEAN CORPUSCULAR HGB CONC 32.3 % (32.0-36.0); MONO % 5.1 % (0.0-8.0); NEUT % 81.1 % (16.0-70.0); PLATELET COUNT 273 TH/MM3 (150-450); RED BLOOD COUNT 4.51 MIL/MM3 (4.00-5.30); RED CELL DISTRIBUTION WIDTH 16.5 % (11.6-17.2); WHITE BLOOD COUNT 16.9 TH/MM3 (4.0-11.0)
[2017-02-06] MEDS: GABAPENTIN 100 MG CAP PO SCH (08:49)
[2017-02-06 08:50] LABS: BICARBONATE 26.2 MEQ/L (21.0-32.0); POTASSIUM 4.1 MEQ/L (3.5-5.1)
[2017-02-06] MEDS: PANTOPRAZOLE SOD 20 MG DELAYED RELEASE TAB PO SCH (08:50)
[2017-02-06] MEDS: SUCRALFATE 1 GM TAB PO SCH (08:50)
[2017-02-06] MEDS: FLUoxetine HCL 20 MG CAP PO SCH (08:51)
[2017-02-06] MEDS: SODIUM CHLORIDE 0.9% FLUSH 10 ML FLUSH IV FLUSH SCH (09:00)
[2017-02-06] MEDS: methylPREDNISolone SOD SUCC 40 MG/1 ML VIAL IV PUSH SCH (09:00)
[2017-02-06] MEDS ORDERED: POTASSIUM CHLORIDE 20 MEQ CONTROLLED RELEASE TAB PO SCH (09:00)
[2017-02-06 09:50] VITALS: RESP 18
[2017-02-06] MEDS ORDERED: PANT20 PO (10:09)
[2017-02-06] MEDS ORDERED: VENTAER INH (10:09)
[2017-02-06] MEDS ORDERED: FLUO20CA12 PO (10:09)
[2017-02-06] MEDS ORDERED: GABA100C4 PO (10:09)
[2017-02-06] MEDS ORDERED: POTA20TA5 PO (10:09)
[2017-02-06] MEDS ORDERED: TRAZ50TA12 PO (10:09)
[2017-02-06] MEDS ORDERED: CARA1TAB6 PO (10:09)
[2017-02-06] MEDS ORDERED: LEVS0.123 PO (10:15)
[2017-02-06] MEDS ORDERED: PRED20 PO (10:23)
[2017-02-06] MEDS ORDERED: CEFU1TAB20 PO (10:23)
--- NOTE | 2017-02-06 10:28 | HHI.DS ---
Discharge Summary Admission Date Feb 03, 2017 at 18:10 Discharge Date: Feb 06, 2017 Admitting Diagnosis dyspnea, hypokalemia, tachypnea (1) T12 compression fracture (2) COPD exacerbation (3) Gastroparesis (4) Anxiety (5) Hypokalemia Brief History 56-year-old female with reported history of COPD, smoker, here for evaluation of shortness of breath and left mid/upper back pain. The patient reports that she fell onto her back about a week ago, and since that time she has been having left mid/upper back pain. She reports that for the last 3 days she has been having shortness of breath that is not improving with her Ventolin. No fevers. No cough. CBC/BMP: 02/06/17 0802 02/06/17 0802 Significant Findings Laboratory Tests Test 02/03/17 02/03/17 02/04/17 02/04/17 14:30 23:11 08:55 11:34 White Blood Count 18.6 TH/MM3 16.9 TH/MM3 (4.0-11.0) (4.0-11.0) Neutrophils (%) (Auto) 75.7 % (16.0-70.0) Neutrophils # (Auto) 14.1 TH/MM3 (1.8-7.7) Monocytes # (Auto) 1.3 TH/MM3 (0-0.9) Potassium Level 2.2 MEQ/L 3.0 MEQ/L 3.3 MEQ/L (3.5-5.1) (3.5-5.1) (3.5-5.1) Blood Urea Nitrogen 4 MG/DL (7-18) Estimat Glomerular Filtration 78 ML/MIN (>89) Rate Calcium Level 8.4 MG/DL (8.5-10.1) Alkaline Phosphatase 163 U/L (45-117) Troponin I LESS THAN 0.02 NG/ML (0.02-0.05) Albumin 3.1 GM/DL (3.4-5.0) Creatinine 0.48 MG/DL (0.50-1.00) Test 02/05/17 02/06/17 07:52 08:02 Neutrophils (%) (Auto) 88.7 % 81.1 % (16.0-70.0) (16.0-70.0) Lymphocytes (%) (Auto) 8.7 % (9.0-44.0) Neutrophils # (Auto) 9.6 TH/MM3 13.7 TH/MM3 (1.8-7.7) (1.8-7.7) Lymphocytes # (Auto) 0.9 TH/MM3 (1.0-4.8) Chloride Level 109 MEQ/L (98-107) Anion Gap 4 MEQ/L (5-15) Creatinine 0.45 MG/DL 0.49 MG/DL (0.50-1.00) (0.50-1.00) Random Glucose 125 MG/DL 108 MG/DL (74-106) (74-106) White Blood Count 16.9 TH/MM3 (4.0-11.0) PE at Discharge GENERAL: alert and oriented SKIN: Warm and dry. Band aid on back HEAD: Normocephalic. EYES: No scleral icterus. No injection or drainage. NECK: Supple, trachea midline. No JVD or lymphadenopathy. CARDIOVASCULAR: Regular rate and rhythm without murmurs, gallops, or rubs. RESPIRATORY: Breath sounds equal bilaterally. No accessory muscle use. GASTROINTESTINAL: Abdomen soft, non-tender, nondistended. MUSCULOSKELETAL: No cyanosis, or edema. BACK: Nontender without obvious deformity. No CVA tenderness. Hospital Course 56-year-old female with reported history of COPD, smoker, here for evaluation of shortness of breath and left mid/upper back pain. The patient reports that she fell onto her back about a week ago, and since that time she has been having left mid/upper back pain. She reports that for the last 3 days she has been having shortness of breath that is not improving with her Ventolin. No fevers. No cough. Patient was found to have a T12 compression fracture and underwent a kyphoplasty yesterday. She tolerated the procedure well and is moving around good. She also had some COPD exacerbation. She denies any SOB now. She was treated with IV antibiotics and will be discharged on oral antibiotics. She will also be on steriod taper. She will need to follow up in office and appt made. Pt Condition on Discharge: Good Discharge Disposition: Disch w/ Home Health Serv Discharge Instructions DIET: Follow Instructions for: As Tolerated, No Restrictions Activities you can perform: Regular-No Restrictions Follow up Referrals: PCP Follow-up with [facility] New Medications: Albuterol 18 GM Inh (Ventolin Hfa 18 GM Inh) 90 Mcg/Act Aer 1 PUFF INH Q4H PRN SHORTNESS OF BREATH #30 INHALER Cefuroxime (Cefuroxime) 500 Mg Tab 500 MG PO Q12HR Infection #10 TAB Fluoxetine (Fluoxetine) 20 Mg Capsule 40 MG PO BID Depression Control #60 CAP Gabapentin (Gabapentin) 100 Mg Cap 100 MG PO BID Pain #60 CAP Hyoscyamine (Levsin) 0.125 Mg Tab 0.125 MG PO Q6H Heartburn Management #30 TAB Pantoprazole (Protonix) 20 Mg Tab 20 MG PO DAILY Heartburn Management #30 TAB Potassium Chloride Microencaps (Potassium Chloride Microencaps) 20 Meq Tab 20 MEQ PO DAILY Electrolyte Replacement #30 TAB Prednisone (Prednisone) 20 Mg Tab 20 MG PO BID Broncospasm #12 TAB Sucralfate (Carafate) 1 Gm Tab 1 GM PO BID Heartburn Management #60 TAB Trazodone (Trazodone) 50 Mg Tab 100 MG PO HS Insomnia #30 TAB Continued Medications: Aspirin (Aspirin) 81 Mg Chew 81 MG CHEW DAILY Ref 0 TAB Discontinued Medications: Albuterol 18 GM Inh (Ventolin Hfa 18 GM Inh) 90 Mcg/Act Aer 1 PUFF INH Q4H PRN SHORTNESS OF BREATH #1 Ref 0 INHALER Alprazolam (Xanax) 1 Mg Tab 1 MG PO BID PRN ANXIETY Ref 0 TAB Fluoxetine (Prozac) 40 Mg Cap 40 MG PO BID #30 Ref 0 CAP Gabapentin (Neurontin) 100 Mg Cap 100 MG PO BID #60 Ref 0 CAP Hyoscyamine (Levsin) 0.125 Mg Tab 0.125 MG PO Q6H Gastrointestinal disorders Ref 0 TAB Omeprazole Magnesium (Prilosec) 20 Mg Tab 1 CAP PO DAILY Sucralfate (Sucralfate) 1 Gm Tab 1 GM PO BID on empty stomach Duodenal ulcer #120 Ref 0 TAB Trazodone (Trazodone) 100 Mg Tablet 100 MG PO HS Control Depression #30 Ref 0 TAB Naina Ba Feb 06, 2017 10:28
[2017-02-06] MEDS ORDERED: predniSONE 20 MG TAB PO SCH (21:00)
[2017-02-06] MEDS ORDERED: CEFUROXIME AXETIL 500 MG TAB PO SCH (21:00)
== END 2017-02-06 11:38 | disposition home or self-care (01) | DRG 516 ==
LOC: PHED 13:10 → PHEDA 16:39 → OBSVTOIN 18:10 → N05B 02-04 03:30
PROVIDERS: ADMIT Family Medicine; ATTEND Family Medicine
PROC: 0PS43ZZ Reposition Thoracic Vertebra, Percutaneous Approach (ICD-10-PCS; principal; 2017-02-05)
PROC: 0PU43JZ Supplement Thoracic Vertebra with Synthetic Substitute, Percutaneous Approach (ICD-10-PCS; 2017-02-05)
DX: S22.089A Unspecified fracture of T11-T12 vertebra, initial encounter for closed fracture (principal); J44.1 Chronic obstructive pulmonary disease with (acute) exacerbation; K31.84 Gastroparesis; Z85.028 Personal history of other malignant neoplasm of stomach; W19.XXXA Unspecified fall, initial encounter; M79.7 Fibromyalgia; F17.210 Nicotine dependence, cigarettes, uncomplicated; F41.9 Anxiety disorder, unspecified; E87.6 Hypokalemia; Z79.82 Long term (current) use of aspirin; Z90.3 Acquired absence of stomach [part of]
CPT/HCPCS: 22513; 71010; 71275; 72128; 72146; 80048; 80053; 82306; 82550; 82552; 84132; 84484; 85025; 85027; 85610; 93005; 94640; 94664; 96365; 96375; 99152; 99153; J0696; J2250; J2270; J2920; J2930; J3010; J3370; J3480; J7050; Q9967

== ENCOUNTER 2017-04-04 10:13 | Inpatient (IN) | payer SELFPAY ==
[~2017-04-04] VITALS: Ht 160 cm; Wt 51.0 kg
[~2017-04-04 10:13] MED LIST changes: +ASPI81CH CHEW; -ASPI81TA82 PO; +CARA1TAB6 PO; +CEFU1TAB20 PO; +FLUO20CA12 PO; -GABA100C2 PO; +GABA100C4 PO; -HYOS0.129 SL; +LEVS0.123 PO; -OMPR20CCR PO; +PANT20 PO; -PERC5TAB12 PO; +POTA20TA5 PO; +PRED20 PO; -PROZ40CA PO; -SUCR1 PO; -TRAZ100 PO; +TRAZ50TA12 PO; -TYLCOD5S PO; +VENTAER INH; -XANA1TAB6 PO; -ZOFR8TAB PO
[2017-04-04 10:25] VITALS: BP 100/57; PULSE 73; RESP 18; TEMP 98.1; O2SAT 90
[2017-04-04 10:30] VITALS: BP 100/57; PULSE 73; RESP 18; TEMP 98.1; O2SAT 90
[2017-04-04] MEDS ORDERED: SODIUM CHLORIDE 0.9% FLUSH 10 ML FLUSH IVF PRN (10:30)
--- NOTE | 2017-04-04 10:31 | PD ---
HPI Chief Complaint: Fall Time Seen by Provider: 10:27 Travel History International Travel<30 days: No Contact w/Intl Traveler<30days: No Traveled to known affect area: No History of Present Illness HPI The patient was seen and examined in the presence of the nurse. This patient woke up late this morning and jumped out of bed and was running and tripped and fell. She landed on her right hip. She cannot bear weight or get up. Paramedics brought her in. Her chief complaint is right hip pain. Duration 1 hour. No alleviating factors. Pain is moderately severe and worse with movement of the right leg. She takes a baby aspirin daily, no other blood thinners. Denies pain elsewhere or other injury PFSH Past Medical History Anxiety: Yes Depression: No Cancer: Yes (STOMACH CA) Cardiovascular Problems: No Chemotherapy: No Cerebrovascular Accident: No Diminished Hearing: No Endocrine: No Gastrointestinal Disorders: Yes GERD: Yes Genitourinary: No Hiatal Hernia: Yes Immune Disorder: No Musculoskeletal: Yes Neurologic: Yes (FIBROMYALGIA) Psychiatric: Yes (PTSD) Reproductive: No Respiratory: Yes (COPD) Migraines: No Radiation Therapy: No Seizures: No Ulcer: Yes (PRECANCEROUS CELLS, HUDSON'S ESOPHAGITIS. HX H PYLORI) Menopausal: Yes Past Surgical History Abdominal Surgery: Yes (PARTIAL GASTRECTOMY / JAIRON) AICD: No Appendectomy: Yes Arteriovenous Shunt: No Cardiac Surgery: No Cholecystectomy: Yes Ear Surgery: No Endocrine Surgery: No Eye Surgery: No Genitourinary Surgery: No Gynecologic Surgery: Yes (HYSTERECTOMY) Hysterectomy: Yes Insulin Pump: No Joint Replacement: No Neurologic Surgery: No Oral Surgery: No Pacemaker: No Thoracic Surgery: No Other Surgery: Yes (FACIAL RECONSTRUCTION) Social History Alcohol Use: Yes (SOCIAL) Tobacco Use: Yes (1/2 PPD) Substance Use: No Allergies-Medications (Allergen,Severity, Reaction): Coded Allergies: cyclobenzaprine (Unverified Allergy, Severe, Fatigue, 04/04/17) doxycycline (Unverified Allergy, Unknown, does not know, 04/04/17) minocycline (Unverified Allergy, Unknown, does not know, 04/04/17) penicillin G (Unverified Allergy, Unknown, does not know, 04/04/17) tigecycline (Unverified Allergy, Unknown, does not know, 04/04/17) levofloxacin (Unverified Adverse Reaction, Severe, Hallucinations, 04/04/17 ) Reported Meds & Prescriptions Reported Meds & Active Scripts Active Levsin (Hyoscyamine Sulfate) 0.125 Mg Tab 0.125 Mg PO Q6H Ventolin Hfa 18 GM Inh (Albuterol Sulfate) 90 Mcg/Act Aer 1 Puff INH Q4H PRN Potassium Chloride Microencaps 20 Meq Tab 20 Meq PO DAILY Trazodone (Trazodone HCl) 50 Mg Tab 100 Mg PO HS Carafate (Sucralfate) 1 Gm Tab 1 Gm PO BID Protonix (Pantoprazole Sodium) 20 Mg Tab 20 Mg PO DAILY Fluoxetine (Fluoxetine HCl) 20 Mg Capsule 40 Mg PO BID Gabapentin 100 Mg Cap 100 Mg PO BID Reported Aspirin 81 Mg Chew 81 Mg CHEW DAILY Review of Systems General / Constitutional: No: Fever Eyes: No: Visual changes HENT: No: Headaches Cardiovascular: No: Chest Pain or Discomfort Respiratory: No: Shortness of Breath Gastrointestinal: No: Abdominal Pain Genitourinary: No: Dysuria Musculoskeletal: Positive: Limited ROM, Pain Skin: No Rash Neurologic: No: Weakness Psychiatric: No: Depression Endocrine: No: Polydipsia Hematologic/Lymphatic: No: Easy Bruising Physical Exam Narrative GENERAL: Well-nourished, well-developed patient with right hip pain . SKIN: Focused skin assessment reveals no rash and nodules. Skin is Warm and dry. HEAD: Atraumatic. Normocephalic. EYES: Pupils equal and round. No scleral icterus. No injection or drainage. ENT: No nasal bleeding or discharge. Mucous membranes pink and moist. NECK: Trachea midline. No JVD. CARDIOVASCULAR: Regular rate and rhythm. No murmur appreciated. RESPIRATORY: No accessory muscle use. Clear to auscultation. Breath sounds equal bilaterally. GASTROINTESTINAL: Abdomen soft, non-tender, nondistended. Hepatic and splenic margins not palpable. MUSCULOSKELETAL: Right leg is shortened and externally rotated. Has some swelling and tenderness at the right greater trochanter. No clubbing. No cyanosis. No edema. Pulse and sensation and capillary refill are intact in the legs. NEUROLOGICAL: Awake and alert. No obvious cranial nerve deficits. Motor grossly within normal limits. Normal speech. PSYCHIATRIC: Appropriate mood and affect; insight and judgment normal. Data Data Last Documented VS Vital Signs Date Time Temp Pulse Resp B/P (MAP) Pulse Ox O2 Delivery O2 Flow Rate FiO2 9/15/17 11:46 68 18 112/59 (76) 93 Nasal Cannula 2.00 04/04/17 10:30 98.1 Orders Orders Electrocardiogram (04/04/17 10:27) Complete Blood Count With Diff (04/04/17 10:27) Comprehensive Metabolic Panel (04/04/17 10:27) Prothrombin Time / Inr (Pt) (04/04/17 10:27) Act Partial Throm Time (Ptt) (04/04/17 10:27) Chest, Single Ap (04/04/17 10:27) Hip, Uni(Ap&Lat) W Ap Pelvis (04/04/17 10:27) Iv Access Insert/Monitor (04/04/17 10:27) Sodium Chloride 0.9% Flush (Ns Flush) (04/04/17 10:30) Labs Laboratory Tests Test 04/04/17 10:30 White Blood Count 8.9 TH/MM3 Red Blood Count 4.08 MIL/MM3 Hemoglobin 11.8 GM/DL Hematocrit 36.4 % Mean Corpuscular Volume 89.4 FL Mean Corpuscular Hemoglobin 28.8 PG Mean Corpuscular Hemoglobin Concent 32.3 % Red Cell Distribution Width 16.2 % Platelet Count 280 TH/MM3 Mean Platelet Volume 7.1 FL Neutrophils (%) (Auto) 74.1 % Lymphocytes (%) (Auto) 14.0 % Monocytes (%) (Auto) 6.7 % Eosinophils (%) (Auto) 4.3 % Basophils (%) (Auto) 0.9 % Neutrophils # (Auto) 6.6 TH/MM3 Lymphocytes # (Auto) 1.2 TH/MM3 Monocytes # (Auto) 0.6 TH/MM3 Eosinophils # (Auto) 0.4 TH/MM3 Basophils # (Auto) 0.1 TH/MM3 CBC Comment DIFF FINAL Differential Comment Prothrombin Time 11.7 SEC Prothromb Time International Ratio 1.1 RATIO Activated Partial Thromboplast Time 28.7 SEC Blood Urea Nitrogen 3 MG/DL Creatinine 0.37 MG/DL Random Glucose 74 MG/DL Total Protein 4.8 GM/DL Albumin 1.8 GM/DL Calcium Level 6.4 MG/DL Alkaline Phosphatase 91 U/L Aspartate Amino Transf (AST/SGOT) 14 U/L Alanine Aminotransferase (ALT/SGPT) 12 U/L Total Bilirubin 0.1 MG/DL Sodium Level 148 MEQ/L Potassium Level 2.9 MEQ/L Chloride Level 118 MEQ/L Carbon Dioxide Level 23.3 MEQ/L Anion Gap 7 MEQ/L Estimat Glomerular Filtration Rate 179 ML/MIN Protein Corrected Calcium 7.5 MG/DL MDM Medical Decision Making Medical Screen Exam Complete: Yes Emergency Medical Condition: Yes Medical Record Reviewed: Yes Differential Diagnosis Hip fracture, hip dislocation, pelvic fracture Narrative Course I have reviewed the patient's electronic medical record. IV placed CBC is normal metabolic profile shows multiple abnormalities including hypernatremia and hypokalemia and hypocalcemia. LFT's are normal Coagulation studies are normal I reviewed her pelvis x-ray which shows a right sided mid femoral neck fracture I reviewed her right hip x-ray shows mid femoral neck fracture I reviewed her chest x-ray is negative for trauma. Radiologist reading is noted. She has no peripheral edema or CHF and is in no way short of breath or dyspneic. I think she has chronic poor saturation from her excessive smoking. Currently 93% on a cannula I reviewed her EKG shows sinus rhythm without ectopy Case reviewed in detail with Dr. Morrison from orthopedics. He will be a documentum consultant and fix this hip I reviewed with Dr. Almonte's nurse practitioner who accepts admission on his behalf and will write admission orders including IV potassium replacement and figure out what to do with these electrolytes Diagnosis Primary Impression: Closed fracture of right hip requiring operative repair Qualified Codes: S72.001A - Fracture of unspecified part of neck of right femur, initial encounter for closed fracture Additional Impressions: Hypernatremia Hypokalemia Hypocalcemia Admitting Information Admitting Physician Requests: Admit Bishop Chua MD Apr 04, 2017 10:31
[2017-04-04 10:48] LABS: AUTOMATED NEUTROPHIL # 6.6 TH/MM3 (1.8-7.7); BASOPHIL # 0.1 TH/MM3 (0-0.2); BASOPHIL % 0.9 % (0.0-2.0); EOSINOPHIL # 0.4 TH/MM3 (0-0.4); EOSINOPHIL % 4.3 % (0.0-4.0); HEMATOCRIT 36.4 % (35.0-46.0); HEMO FLAGS DIFF FINAL; LYMPHOCYTE # 1.2 TH/MM3 (1.0-4.8); MEAN CELL VOLUME 89.4 FL (80.0-100.0); MEAN CORPUSCULAR HEMOGLOBIN 28.8 PG (27.0-34.0); MEAN CORPUSCULAR HGB CONC 32.3 % (32.0-36.0); MONO % 6.7 % (0.0-8.0); NEUT % 74.1 % (16.0-70.0); PLATELET COUNT 280 TH/MM3 (150-450); RED BLOOD COUNT 4.08 MIL/MM3 (4.00-5.30); RED CELL DISTRIBUTION WIDTH 16.2 % (11.6-17.2); WHITE BLOOD COUNT 8.9 TH/MM3 (4.0-11.0)
[2017-04-04 10:53] LABS: APTT (PATIENT) 28.7 SEC (24.3-30.1); INTERNATIONAL NORMALIZED RATIO 1.1 RATIO; PROTHROMBIN TIME - PATIENT 11.7 SEC (9.8-11.6)
[2017-04-04 11:09] LABS: BICARBONATE 23.3 MEQ/L (21.0-32.0); CALCIUM-PROTEIN CORRECTED 7.5 MG/DL (8.5-10.1); TOTAL BILIRUBIN ADULT 0.1 MG/DL (0.2-1.0)
[2017-04-04 11:15] LABS: POTASSIUM 2.9 MEQ/L (3.5-5.1)
--- NOTE | 2017-04-04 11:15 | RADRPT ---
EXAM DATE/TIME: 04/04/2017 10:46 [facility] COMPARISON: No previous studies available for comparison. INDICATIONS : Right hip pain post fall MEDICAL HISTORY : Gastroparesis. Ca's esophagus. SURGICAL HISTORY : Cholecystectomy. Appendectomy. Hysterectomy. Gastroplasty. Tonsils. Jaw reconstruction. ENCOUNTER: Initial ACUITY: 1 day PAIN SCORE: 8/10 LOCATION: Right hip FINDINGS: Fracture right femoral neck and reason alignment without significant impaction. No other fractures a re appreciated. CONCLUSION: Mid femoral neck fracture in reasonable alignment. Randal José MD FACR on April 04, 2017 at 11:13 Board Certified Radiologist. This report was verified electronically.
--- NOTE | 2017-04-04 11:16 | RADRPT ---
EXAM DATE/TIME: 04/04/2017 10:52 [facility] COMPARISON: CHEST SINGLE AP, February 03, 2017, 14:26. INDICATIONS : Pain post fall. MEDICAL HISTORY : Gastroparesis. Ca's esophagus. SURGICAL HISTORY : Cholecystectomy. Appendectomy. Hysterectomy. Gastroplasty. Tonsils. Jaw reconstruction. ENCOUNTER: Initial ACUITY: 1 day PAIN SCORE: 8/10 LOCATION: chest FINDINGS: Mild interstitial edema is present.. The cardiomediastinal contours are unremarkable. Osseous struc tures are intact. CONCLUSION: Mild interstitial edema, negative pneumothorax or displaced fracture. Randal José MD FACR on April 04, 2017 at 11:14 Board Certified Radiologist. This report was verified electronically.
[2017-04-04 11:46] VITALS: BP 112/59; PULSE 68; RESP 18; O2SAT 93
[2017-04-04] MEDS ORDERED: ONDANSETRON HCL 4 MG/2 ML VIAL IV ONE (12:15)
[2017-04-04] MEDS ORDERED: MORPHINE SULFATE 4 MG/ML INJ IV PUSH ONE (12:15)
--- NOTE | 2017-04-04 12:58 | HHI.HP ---
History of Present Illness Primary Care Physician Yuval Betancourt, DO Admission Diagnosis R hip fx Diagnoses: (1) Closed fracture of right hip requiring operative repair (2) T12 compression fracture History of Present Illness pt jumped up quickly fell and broke her r hip Review of Systems Musculoskeletal: COMPLAINS OF: Joint pain, Back pain Past Family Social History Allergies: Coded Allergies: cyclobenzaprine (Unverified Allergy, Severe, Fatigue, 04/04/17) doxycycline (Unverified Allergy, Unknown, does not know, 04/04/17) minocycline (Unverified Allergy, Unknown, does not know, 04/04/17) penicillin G (Unverified Allergy, Unknown, does not know, 04/04/17) tigecycline (Unverified Allergy, Unknown, does not know, 04/04/17) levofloxacin (Unverified Adverse Reaction, Severe, Hallucinations, 04/04/17 ) Past Medical History copd comp fx lumbar spine Past Surgical History TARIQ Reported Medications Reported Meds & Active Scripts Active Levsin (Hyoscyamine Sulfate) 0.125 Mg Tab 0.125 Mg PO Q6H Ventolin Hfa 18 GM Inh (Albuterol Sulfate) 90 Mcg/Act Aer 1 Puff INH Q4H PRN Potassium Chloride Microencaps 20 Meq Tab 20 Meq PO DAILY Trazodone (Trazodone HCl) 50 Mg Tab 100 Mg PO HS Carafate (Sucralfate) 1 Gm Tab 1 Gm PO BID Protonix (Pantoprazole Sodium) 20 Mg Tab 20 Mg PO DAILY Fluoxetine (Fluoxetine HCl) 20 Mg Capsule 40 Mg PO BID Gabapentin 100 Mg Cap 100 Mg PO BID Reported Aspirin 81 Mg Chew 81 Mg CHEW DAILY Active Ordered Medications Inpatient Medications Morphine Sulfate (Morphine Inj) 2 mg ONCE ONCE IV PUSH Last administered on 12:35; Start 04/04/17 at 12:15; Stop 04/04/17 at 12:16; Status DC Ondansetron HCl (Zofran Inj) 4 mg ONCE ONCE IV Last administered on 04/04/17 12:34; Start 04/04/17 at 12:15; Stop 04/04/17 at 12:16; Status DC Sodium Chloride (NS Flush) 2 ml UNSCH PRN IVF FLUSH AFTER USING IV ACCESS; Start 04/04/17 at 10:30 Family History father with heart disease and diabetes mother with alzheimers disease Social History shelter smoker occ drinker Physical Exam Vital Signs Vital Signs Date Time Temp Pulse Resp B/P (MAP) Pulse Ox O2 Delivery O2 Flow Rate FiO2 04/04/17 11:46 68 18 112/59 (76) 93 Nasal Cannula 2.00 04/04/17 10:30 98.1 73 18 100/57 (71) 90 Room Air 04/04/17 10:25 98.1 73 18 100/57 (71) 90 Physical Exam GENERAL: This is a well-nourished, well-developed patient, in no apparent distress. SKIN: No rashes, ecchymoses or lesions. Cool and dry. HEAD: Atraumatic. Normocephalic. No temporal or scalp tenderness. EYES: Pupils equal round and reactive. Extraocular motions intact. No scleral icterus. No injection or drainage. ENT: Nose without bleeding, purulent drainage or septal hematoma. Throat without erythema, tonsillar hypertrophy or exudate. Uvula midline. Airway patent. NECK: Trachea midline. No JVD or lymphadenopathy. Supple, nontender, no meningeal signs. CARDIOVASCULAR: Regular rate and rhythm without murmurs, gallops, or rubs. RESPIRATORY: Clear to auscultation. Breath sounds equal bilaterally. No wheezes , rales, or rhonchi. GASTROINTESTINAL: Abdomen soft, non-tender, nondistended. No hepato-splenomegaly , or palpable masses. No guarding. MUSCULOSKELETAL: Extremities without clubbing, cyanosis, or edema. pain right hip NEUROLOGICAL: Awake and alert. Cranial nerves II through XII intact. Motor and sensory grossly within normal limits. Five out of 5 muscle strength in all muscle groups. Normal speech. Laboratory Laboratory Tests Test 04/04/17 10:30 White Blood Count 8.9 Red Blood Count 4.08 Hemoglobin 11.8 Hematocrit 36.4 Mean Corpuscular Volume 89.4 Mean Corpuscular Hemoglobin 28.8 Mean Corpuscular Hemoglobin Concent 32.3 Red Cell Distribution Width 16.2 Platelet Count 280 Mean Platelet Volume 7.1 Neutrophils (%) (Auto) 74.1 Lymphocytes (%) (Auto) 14.0 Monocytes (%) (Auto) 6.7 Eosinophils (%) (Auto) 4.3 Basophils (%) (Auto) 0.9 Neutrophils # (Auto) 6.6 Lymphocytes # (Auto) 1.2 Monocytes # (Auto) 0.6 Eosinophils # (Auto) 0.4 Basophils # (Auto) 0.1 CBC Comment DIFF FINAL Differential Comment Prothrombin Time 11.7 Prothromb Time International Ratio 1.1 Activated Partial Thromboplast Time 28.7 Blood Urea Nitrogen 3 Creatinine 0.37 Random Glucose 74 Total Protein 4.8 Albumin 1.8 Calcium Level 6.4 Alkaline Phosphatase 91 Aspartate Amino Transf (AST/SGOT) 14 Alanine Aminotransferase (ALT/SGPT) 12 Total Bilirubin 0.1 Sodium Level 148 Potassium Level 2.9 Chloride Level 118 Carbon Dioxide Level 23.3 Anion Gap 7 Estimat Glomerular Filtration Rate 179 Protein Corrected Calcium 7.5 Result Diagram: 04/04/17 1030 04/04/17 1030 Caprini VTE Risk Assessment Caprini VTE Risk Assessment: Mod/High Risk (score >= 2) Caprini Risk Assessment Model Point Value = 1 Point Value = 2 Point Value = 3 Point Value = 5 Age 41-60 Minor surgery BMI > 25 kg/m2 Swollen legs Varicose veins or History of unexplained or recurrent spontaneous Oral contraceptives or hormone replacement Sepsis (< 1 month) Serious lung disease, including pneumonia (< 1 month) Abnormal pulmonary function Acute myocardial infarction Congestive heart failure (< 1 month) History of inflammatory bowel disease Medical patient at bed rest Age 61-74 Arthroscopic surgery Major open surgery (> 45 min) Laparoscopic surgery (> 45 min) Malignancy Confined to bed (> 72 hours) Immobilizing plaster cast Central venous access Age >= 75 History of VTE Family history of VTE Factor V Leiden Prothrombin [id number] Lupus anticoagulant Anticardiolipin antibodies Elevated serum homocysteine Heparin-induced thrombocytopenia Other congenital or acquired thrombophilia Stroke (< 1 month) Elective arthroplasty Hip, pelvis, or leg fracture Acute spinal cord injury (< 1 month) Prophylaxis Regimen Total Risk Factor Score Risk Level Prophylaxis Regimen 0-1 Low Early ambulation 2 Moderate Order ONE of the following: *Sequential Compression Device (SCD) *Heparin 5000 units SQ BID 3-4 Higher Order ONE of the following medications: *Heparin 5000 units SQ TID *Enoxaparin/Lovenox 40 mg SQ daily (WT < 150 kg, CrCl > 30 mL/min) *Enoxaparin/Lovenox 30 mg SQ daily (WT < 150 kg, CrCl > 10-29 mL/min) *Enoxaparin/Lovenox 30 mg SQ BID (WT < 150 kg, CrCl > 30 mL/min) AND/OR *Sequential Compression Device (SCD) 5 or more Highest Order ONE of the following medications: *Heparin 5000 units SQ TID (Preferred with Epidurals) *Enoxaparin/Lovenox 40 mg SQ daily (WT < 150 kg, CrCl > 30 mL/min) *Enoxaparin/Lovenox 30 mg SQ daily (WT < 150 kg, CrCl > 10-29 mL/min) *Enoxaparin/Lovenox 30 mg SQ BID (WT < 150 kg, CrCl > 30 mL/min) AND *Sequential Compression Device (SCD) Assessment and Plan Problem List: (1) Closed fracture of right hip requiring operative repair ICD Codes: S72.001A - Fracture of unspecified part of neck of right femur, initial encounter for closed fracture Status: Acute Plan: to or for orifThe exam, history, and the medical decision-making described in the above note were completed with the assistance of the mid-level provider. I reviewed and agree with the findings presented. I attest that I had a [id number] encounter with the patient on the same day, and personally performed and documented my assessment and findings in the medical record. Problem Qualifiers (1) Closed fracture of right hip requiring operative repair: Qualified Codes: S72.001A - Fracture of unspecified part of neck of right femur , initial encounter for closed fracture Yuval Betancourt DO Apr 04, 2017 12:58
[2017-04-04] MEDS ORDERED: NALOXONE HCL 0.4 MG/ML AMP IV PUSH PRN (13:00)
[2017-04-04] MEDS ORDERED: SODIUM CHLORIDE 0.9% FLUSH 10 ML FLUSH IV FLUSH PRN (13:00)
[2017-04-04] MEDS ORDERED: BISACODYL 10 MG SUPP RECTAL PRN (13:00)
[2017-04-04] MEDS ORDERED: ONDANSETRON HCL 4 MG/2 ML VIAL IVP PRN (13:00)
--- NOTE | 2017-04-04 13:57 | EKG ---
Date Performed: 04/04/2017 Time Performed: 10:25:48 PTAGE: 57 years EKG: Baseline artifact present Sinus rhythm MINIMAL ST DEPRESSION BORDERLINE ECG No significant change from prior electrocardiogram. PREVIOUS TRACING : 02/03/2017 14.36 DOCTOR: Eliseo Machado Interpretating Date/Time 04/04/2017 13:55:53
[2017-04-04] MEDS ORDERED: SODIUM CHLOR 0.45% 1000 ML INJ 1,000 ML IV SCH (14:00)
[2017-04-04] MEDS ORDERED: ALBUTEROL SULFATE 90 MCG/ACT HFA 18 GM INHALER INH PRN (14:30)
[2017-04-04 14:40] VITALS: BP 107/64; PULSE 70; RESP 18; TEMP 97.9; O2SAT 95
[2017-04-04] MEDS: PANTOPRAZOLE SODIUM 40 MG VIAL IV PUSH SCH (15:34)
[2017-04-04] MEDS: POTASSIUM CHLOR 20 MEQ PREMIX 100 ML IV SCH ×2 (15:36→17:43)
[2017-04-04] MEDS ORDERED: ACETAMINOPHEN/CODEINE 300 MG/30 MG TAB PO PRN (16:00)
[2017-04-04] MEDS: GABAPENTIN 300 MG CAP PO SCH ×2 (17:43→22:43)
[2017-04-04] MEDS: ALPRAZolam 1 MG TAB PO PRN (17:43)
[2017-04-04] MEDS: SUCRALFATE 1 GM TAB PO SCH (17:43)
[2017-04-04] MEDS: MORPHINE SULFATE 4 MG/ML INJ IV PRN (17:44)
[2017-04-04 20:00] VITALS: BP 88/54; PULSE 75; RESP 16; TEMP 97.9; O2SAT 93
[2017-04-04] MEDS ORDERED: SODIUM CHLORIDE 0.9% FLUSH 10 ML FLUSH IV FLUSH SCH (21:00)
[2017-04-04] MEDS ORDERED: SUCRALFATE 1 GM TAB PO SCH (21:00)
[2017-04-04 22:30] VITALS: BP 91/53; PULSE 69; RESP 16; TEMP 98.1; O2SAT 92
[2017-04-04] MEDS: traZODone HCL 100 MG TAB PO SCH (22:43)
[2017-04-04] MEDS: HYOSCYAMINE 0.125 MG TAB PO SCH (22:43)
[2017-04-04] MEDS: FLUoxetine HCL 20 MG CAP PO SCH (22:44)
[2017-04-05] VITALS (7 sets, daily range): BP systolic 84–123; BP diastolic 50–71; PULSE 69–90; RESP 17–18; TEMP 96.5–101.7; O2SAT 92–96
[2017-04-05] MEDS ORDERED: POTASSIUM CHLOR 20 MEQ PREMIX 100 ML IV SCH (01:30)
[2017-04-05] MEDS: HYOSCYAMINE 0.125 MG TAB PO SCH ×4 (04:00→20:41)
[2017-04-05] MEDS ORDERED: GENTAMICIN SULFATE 80 MG/2 ML VIAL ONE (06:21)
[2017-04-05] MEDS ORDERED: FAMOTIDINE 20 MG/2 ML VIAL ONE (07:53)
[2017-04-05] MEDS ORDERED: ceFAZolin INJ 1,000 MG VIAL ONE (08:00)
[2017-04-05] MEDS ORDERED: VANCOMYCIN HCL 1000 MG VIAL ONE (08:00)
[2017-04-05] MEDS: SUCRALFATE 1 GM TAB PO SCH ×3 (09:00→17:05)
[2017-04-05] MEDS: GABAPENTIN 300 MG CAP PO SCH ×4 (09:00→20:41)
[2017-04-05] MEDS: FLUoxetine HCL 20 MG CAP PO SCH ×2 (09:00→20:41)
[2017-04-05] MEDS ORDERED: HYDR-3288 PO (09:26)
[2017-04-05] MEDS ORDERED: ENOX30P SQ (09:26)
[2017-04-05] MEDS ORDERED: ASPI81CH37 CHEW (09:27)
[2017-04-05] MEDS ORDERED: ZOLPIDEM TARTRATE 5 MG TAB PO PRN (09:30)
[2017-04-05] MEDS ORDERED: ONDANSETRON HCL 4 MG/2 ML VIAL IVP PRN (09:30)
[2017-04-05] MEDS ORDERED: BISACODYL 10 MG SUPP RECTAL PRN (09:30)
[2017-04-05] MEDS ORDERED: diphenhydrAMINE HCL 50 MG/ML VIAL IV PRN (09:30)
[2017-04-05] MEDS ORDERED: SODIUM CHLORIDE 0.9% IV SCH (09:30)
[2017-04-05] MEDS ORDERED: TRANEXAMIC ACID IV SCH (09:30)
[2017-04-05] MEDS ORDERED: Post-op Orders (for Pharmacy) MISC XX ONE (09:30)
[2017-04-05] MEDS ORDERED: DO NOT ADM ANY ANTICOAGULANT DRUGS PRN (09:33)
[2017-04-05] MEDS ORDERED: *morphine SULFATE 8 MG/ML PERIprocedure ONLY ONE (09:38)
[2017-04-05] MEDS: SODIUM CHLOR 0.9% 1000 ML INJ 1,000 ML IV SCH ×2 (10:00→20:00)
[2017-04-05] MEDS ORDERED: INFLUENZA VIRUS VACCINE (QUADRIVALENT) 0.5 ML SYR IM ONE ×2 (10:00→17:00)
--- NOTE | 2017-04-05 10:04 | HHI.PR ---
Subjective Remarks pt admitted last pm with fx r hip k and ca low now corrected Objective Vital Signs Date Time Temp Pulse Resp B/P (MAP) Pulse Ox O2 Delivery O2 Flow Rate FiO2 04/05/17 08:00 98.2 70 18 109/69 (82) 92 04/05/17 03:10 97.4 69 17 100/68 (79) 94 04/05/17 00:40 97.9 74 17 84/50 (61) 94 04/04/17 22:30 98.1 69 16 91/53 (66) 92 04/04/17 20:00 97.9 75 16 88/54 (65) 93 04/04/17 14:40 97.9 70 18 107/64 (78) 95 04/04/17 13:06 18 04/04/17 11:46 68 18 112/59 (76) 93 Nasal Cannula 2.00 04/04/17 10:30 98.1 73 18 100/57 (71) 90 Room Air 04/04/17 10:25 98.1 73 18 100/57 (71) 90 I/O 04/04/17 04/04/17 04/04/17 04/05/17 04/05/17 04/05/17 07:00 15:00 23:00 07:00 15:00 23:00 Intake Total 720 ml 120 ml 750 ml Output Total 1350 ml 500 ml 1000 ml Balance -630 ml -380 ml -250 ml Intake Oral 720 ml 120 ml IV Total 750 ml Output Urine Total 1350 ml 500 ml 800 ml Estimated Blood Loss 200 ml # Bowel Movements 0 Result Diagram: 04/04/17 1030 04/04/17 2131 Imaging Last Impressions Hip and Pelvis X-Ray 04/04/17 1027 Signed Impressions: Service Date/Time: Tuesday, April 04, 2017 10:46 - CONCLUSION: Mid femoral neck fracture in reasonable alignment. Randal José MD FACR Chest X-Ray 04/04/17 1027 Signed Impressions: Service Date/Time: Tuesday, April 04, 2017 10:52 - CONCLUSION: Mild interstitial edema, negative pneumothorax or displaced fracture. Randal José MD FACR Procedures orif r hip in progress Objective Remarks GENERAL: Well-nourished, well-developed patient. SKIN: Warm and dry. HEAD: Normocephalic. EYES: No scleral icterus. No injection or drainage. NECK: Supple, trachea midline. No JVD or lymphadenopathy. CARDIOVASCULAR: Regular rate and rhythm without murmurs, gallops, or rubs. RESPIRATORY: Breath sounds equal bilaterally. No accessory muscle use. GASTROINTESTINAL: Abdomen soft, non-tender, nondistended. EXTREMITIES: No cyanosis, or edema pain r hip. NEUROLOGICAL: Awake, alert, and oriented x 3. Non-focal. Medications and IVs Inpatient Medications Acetaminophen/ Codeine Phosphate (Tylenol-Codeine #3) 1 tab Q6H PRN PO PAIN SCALE 1 TO 10 Last administered on 04/04/17 17:44; Start 04/04/17 at 16:00 Acetaminophen/ Hydrocodone Bitart ([place] 10-325 Mg) 2 tab Q6H PRN PO PAIN SCALE 5 TO 10; Start 04/05/17 at 09:30; Status UNV Albuterol Sulfate (Ventolin Hfa Inh) 1 puff Q4H PRN INH SHORTNESS OF BREATH; Start 04/04/17 at 14:30 Alprazolam (Xanax) 1 mg Q8H PRN PO anxiety Last administered on 04/04/17 17:43 ; Start 04/04/17 at 16:00 Bisacodyl (Dulcolax Supp) 10 mg DAILY PRN HI CONSTIPATION; Start 04/05/17 at 09 :30; Status UNV Diphenhydramine HCl (Benadryl Inj) 25 mg Q6H PRN IV ITCHING; Start 04/05/17 at 09:30; Status UNV Enoxaparin Sodium (Lovenox Inj) 30 mg Q24H SQ ; Start 04/05/17 at 09:30; Status UNV Fluoxetine HCl (PROzac) 40 mg BID PO Last administered on 04/04/17 22:44; Start 04/04/17 at 21:00 Gabapentin (Neurontin) 100 mg BID PO ; Start 04/05/17 at 21:00; Status UNV Hyoscyamine Sulfate (Levsin) 0.125 mg Q6H PO Last administered on 04/04/17 22: 43; Start 04/04/17 at 16:00 Influenza Virus Vaccine (Flu (Quadrivalent) Vaccine Inj) 0.5 ml ONCE ONCE IM ; Start 04/05/17 at 10:00; Stop 04/05/17 at 10:01; Status DC IV Flush (NS Flush) 2 ml BID IVF ; Start 04/05/17 at 21:00 Miscellaneous Information ALL NURSING DEPARTME... 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; Start 04/05/17 at 09:30; Status UNV Multivitamins/ Minerals Therapeutic (Theragran M Tab) 1 tab BID PO ; Start 04/06 at 21:00; Stop 06/05/17 at 20:59 Naloxone HCl (Narcan Inj) 0.4 mg UNSCH PRN IV PUSH SEE LABEL COMMENTS; Start at 13:00 Ondansetron HCl (Zofran Inj) 4 mg Q6H PRN IVP NAUSEA OR VOMITING; Start at 09:30 Pantoprazole Sodium (Protonix Inj) 40 mg Q24H IV PUSH Last administered on 04/04 15:34; Start 04/04/17 at 15:00 Pantoprazole Sodium (Protonix) 20 mg DAILY PO ; Start 04/06/17 at 09:00 Potassium Chloride (KCl) 20 meq DAILY PO ; Start 04/06/17 at 10:00 Sodium Chloride 1,000 ml @ 100 mls/hr Q10H IV ; Start 04/05/17 at 10:00 Sodium Chloride (NS Flush) 2 ml BID IV FLUSH ; Start 04/04/17 at 21:00; Stop at 09:52; Status DC Sucralfate (Carafate) 1 gm TID PO Last administered on 04/04/17 17:43; Start 04/04/17 at 18:00 Tranexamic Acid / Sodium Chloride 100 ml @ 200 mls/hr UNSCH IV ; Start at 09:30; Stop 04/05/17 at 09:59; Status UNV Trazodone HCl (Desyrel) 100 mg HS PO Last administered on 04/04/17t 22:43; Start 04/04/17 at 21:00 Vancomycin HCl 1000 mg/Sodium Chloride 250 ml @ 250 mls/hr Q12H IV ; Start at 09:30; Stop 04/05/17 at 22:29; Status UNV Zolpidem Tartrate (Ambien) 5 mg HS PRN PO SLEEP; Start 04/05/17 at 09:30; Status UNV Assessment and Plan Problem List: (1) Closed fracture of right hip requiring operative repair ICD Codes: S72.001A - Fracture of unspecified part of neck of right femur, initial encounter for closed fracture Status: Acute Plan: to or for orifThe exam, history, and the medical decision-making described in the above note were completed with the assistance of the mid-level provider. I reviewed and agree with the findings presented. I attest that I had a [id number] encounter with the patient on the same day, and personally performed and documented my assessment and findings in the medical record. Assessment and Plan will ck K post op Discussed Condition With nursing Problem Qualifiers (1) Closed fracture of right hip requiring operative repair: Qualified Codes: S72.001A - Fracture of unspecified part of neck of right femur , initial encounter for closed fracture Yuval Betancourt DO Apr 05, 2017 10:04
--- NOTE | 2017-04-05 10:54 | RADRPT ---
EXAM DATE/TIME: 04/05/2017 09:59 [facility] COMPARISON: HIP RIGHT (AP&LAT 2/3VWS) W AP PELVIS, April 04, 2017, 10:46. INDICATIONS : Post op rt hip total arthroplasty. MEDICAL HISTORY : Chronic obstructive pulmonary disease. Fibromyalgia, barretts esophagitis. SURGICAL HISTORY : None. ENCOUNTER: Initial ACUITY: 1 day PAIN SCORE: Non-responsive. LOCATION: Right Hip FINDINGS: There is a bipolar hip prosthesis seen on the right side. This is well placed. There some air in the soft tissues which is a normal postoperative finding. Clips are seen in the pelvis. CONCLUSION: Good placement of the bipolar hip prosthesis on the right side. Samy Alvarez MD on April 05, 2017 at 10:52 Board Certified Radiologist. This report was verified electronically.
--- NOTE | 2017-04-05 11:46 | MB ---
cc: PANCHITO DELACRUZ M.D. DATE OF CONSULTATION: 04/05/2017 REASON FOR CONSULTATION: Right hip fracture. HISTORY This patient is a 57-year-old female who fell yesterday after a tripping injury sustaining a complex injury to the right hip. She had the acute onset of severe pain in regards to right hip with inability to stand, ambulate or bear weight. She states She landed on the right hip. She presented [facility] emergency room after the paramedics brought her in pain is moderate severe worsens with any movement. No numbness, tingling. X-rays confirm evidence of displaced right femoral neck fracture. She has aspirin and no other blood thinners. PAST MEDICAL HISTORY: Past medical history is positive for chronic obstructive pulmonary disease. Compression fracture lumbar spine. History of total abdominal hysterectomy. History of stomach cancer. Anxiety Gastric reflux. Hernia Fibromyalgia. Post traumatic stress disorder. Esophagitis PAST SURGICAL HISTORY: surgical history also please note partial gastrectomy Cholecystectomy Appendectomy hysterectomy. Facial reconstruction. SOCIAL HISTORY She occasionally drinks alcohol on a social basis. She has smokes a half-pack of cigarettes per day and has done so for many years. Denies substance abuse. ALLERGIES Include FLEXERIL DOXYCYCLINE MINOCYCLINE PENICILLIN G TIGECYCLINE LEVAQUIN MEDICATIONS 1. Neurontin. 2. Prozac. 3. Protonix. 4. Carafate. 5. Trazodone. 6. Potassium. 7. Ventolin 8. Levsin REVIEW OF SYSTEMS Review of system negative for 12 systems other than history of present illness. PHYSICAL EXAMINATION: IN GENERAL: Patient is awake, alert lying in bed. She is very thin no acute distress. HEAD, EYES, EARS, NOSE, AND THROAT: Skin intact, warm, dry, normocephalic, atraumatic. Pupils equal, round, reactive to light and, extraocular muscles intact. NECK: Neck is supple. LUNGS: Clear. HEART: Regular rate and soft, nontender, right hip shortening and internal rotation deformity, she has pain past motion right hip. She flex her ankle. Toes distally with no calf swelling. RADIOLOGIC: X-ray AP pelvis as well as the right hip AP lateral views shows a displaced right femoral neck fracture. IMPRESSION 57-year-old female status post fall right displaced femoral neck fracture. PLAN The diagnosis and treatment options of flow the option of nonoperative versus surgery. Surgery would consist of a right bipolar hemiarthroplasty replacement risk of surgery discussed which include but limited to bleeding, infection damage to nerves, blood vessels, pain, stiffness, alcohol, blood clots, leg length discrepancy, dislocation, pulmonary embolism and even . The patient's states that she understands, the risks of surgery and the benefits and the risks. She did wish to proceed with surgery. Written consent obtained surgical site has been marked. MD TRICIA Rabago/mara /9:14 AM /10:58 AM
[2017-04-05] MEDS ORDERED: GABA300C5 PO (12:06)
[2017-04-05] MEDS: ACETAMINOPHEN/HYDROcodone 325 MG/10 MG TAB PO PRN ×2 (12:08→20:02)
[2017-04-05 12:10] LABS: AUTOMATED NEUTROPHIL # 12.2 TH/MM3 (1.8-7.7); BASOPHIL # 0.1 TH/MM3 (0-0.2); BASOPHIL % 0.4 % (0.0-2.0); EOSINOPHIL # 0.1 TH/MM3 (0-0.4); EOSINOPHIL % 0.9 % (0.0-4.0); HEMATOCRIT 37.9 % (35.0-46.0); HEMO FLAGS DIFF FINAL; LYMPH % 7.8 % (9.0-44.0); LYMPHOCYTE # 1.1 TH/MM3 (1.0-4.8); MEAN CELL VOLUME 89.8 FL (80.0-100.0); MEAN CORPUSCULAR HEMOGLOBIN 30.2 PG (27.0-34.0); MEAN CORPUSCULAR HGB CONC 33.6 % (32.0-36.0); NEUT % 84.9 % (16.0-70.0); PLATELET COUNT 263 TH/MM3 (150-450); RED BLOOD COUNT 4.21 MIL/MM3 (4.00-5.30); RED CELL DISTRIBUTION WIDTH 16.2 % (11.6-17.2); WHITE BLOOD COUNT 14.4 TH/MM3 (4.0-11.0)
[2017-04-05 12:29] LABS: BICARBONATE 28.1 MEQ/L (21.0-32.0); POTASSIUM 4.2 MEQ/L (3.5-5.1)
[2017-04-05] MEDS: MORPHINE SULFATE 4 MG/ML INJ IV PUSH PRN (13:26)
[2017-04-05] MEDS ORDERED: LIDOCAINE HCL 1% PF 5 ML AMPULE OTHER ONE (16:13)
[2017-04-05] MEDS ORDERED: PROPOFOL 200 MG/20 ML AMP IV ONE (16:13)
[2017-04-05] MEDS ORDERED: MIDAZOLAM HCL 2 MG/2 ML VIAL IV ONE (16:13)
[2017-04-05] MEDS ORDERED: ONDANSETRON HCL 4 MG/2 ML VIAL IV PUSH ONE (16:13)
[2017-04-05] MEDS ORDERED: ROCURONIUM INJ 50 MG/5 ML SYRINGE IV PUSH ONE (16:13)
[2017-04-05] MEDS ORDERED: NEOSTIGMINE 3 MG/3 ML SYR IV ONE (16:13)
[2017-04-05] MEDS ORDERED: GLYCOPYRROLATE 0.2 MG/ML VIAL IV ONE (16:13)
[2017-04-05] MEDS: MORPHINE SULFATE 4 MG/ML INJ IV PRN ×2 (17:04→21:47)
[2017-04-05] MEDS: PANTOPRAZOLE SODIUM 40 MG VIAL IV PUSH SCH (17:04)
[2017-04-05 17:14] LABS: BASOPHIL % 0.3 % (0.0-2.0); EOSINOPHIL # 0.3 TH/MM3 (0-0.4); EOSINOPHIL % 2.1 % (0.0-4.0); HEMATOCRIT 38.7 % (35.0-46.0); HEMO FLAGS DIFF FINAL; LYMPH % 12.5 % (9.0-44.0); LYMPHOCYTE # 1.8 TH/MM3 (1.0-4.8); MEAN CELL VOLUME 91.1 FL (80.0-100.0); MEAN CORPUSCULAR HEMOGLOBIN 28.8 PG (27.0-34.0); MEAN CORPUSCULAR HGB CONC 31.6 % (32.0-36.0); MONO % 6.7 % (0.0-8.0); NEUT % 78.4 % (16.0-70.0); PLATELET COUNT 309 TH/MM3 (150-450); RED BLOOD COUNT 4.25 MIL/MM3 (4.00-5.30); RED CELL DISTRIBUTION WIDTH 16.4 % (11.6-17.2)
[2017-04-05 17:53] LABS: BICARBONATE 25.8 MEQ/L (21.0-32.0); POTASSIUM 3.6 MEQ/L (3.5-5.1)
[2017-04-05] MEDS: VANCOMYCIN INJ 1,000 MG in SODIUM CHLOR 0.9% 250 ML INJ 250 ML IV SCH (20:41)
[2017-04-05] MEDS: traZODone HCL 100 MG TAB PO SCH (20:41)
[2017-04-05] MEDS: SODIUM CHLORIDE 0.9% FLUSH 5 ML FLUSH IVF SCH (20:42)
[2017-04-05] MEDS ORDERED: GABAPENTIN 100 MG CAP PO SCH (21:00)
[2017-04-05] MEDS: ENOXAPARIN SODIUM 30 MG/0.3 ML SYRINGE SQ SCH (21:48)
[2017-04-06 00:38] VITALS: BP 107/54; PULSE 95; RESP 18; TEMP 99.2; O2SAT 94
[2017-04-06] MEDS: ACETAMINOPHEN/HYDROcodone 325 MG/10 MG TAB PO PRN (03:39)
[2017-04-06] MEDS: HYOSCYAMINE 0.125 MG TAB PO SCH ×4 (03:39→21:13)
[2017-04-06] MEDS: SODIUM CHLOR 0.9% 1000 ML INJ 1,000 ML IV SCH ×3 (03:40→22:24)
[2017-04-06 04:03] VITALS: BP 118/58; PULSE 92; RESP 18; TEMP 99.5; O2SAT 95
[2017-04-06] MEDS: MORPHINE SULFATE 4 MG/ML INJ IV PRN ×4 (05:55→18:56)
[2017-04-06 07:57] VITALS: BP 100/69; PULSE 84; RESP 17; TEMP 97.9; O2SAT 95
[2017-04-06] MEDS: VANCOMYCIN INJ 1,000 MG in SODIUM CHLOR 0.9% 250 ML INJ 250 ML IV SCH (09:27)
[2017-04-06] MEDS: FLUoxetine HCL 20 MG CAP PO SCH ×2 (09:28→20:00)
[2017-04-06] MEDS: SODIUM CHLORIDE 0.9% FLUSH 5 ML FLUSH IVF PRN ×3 (09:28→18:56)
[2017-04-06] MEDS: SODIUM CHLORIDE 0.9% FLUSH 5 ML FLUSH IVF SCH ×2 (09:28→20:00)
[2017-04-06] MEDS: PANTOPRAZOLE SOD 20 MG DELAYED RELEASE TAB PO SCH (09:29)
[2017-04-06] MEDS: GABAPENTIN 300 MG CAP PO SCH ×4 (09:29→20:00)
[2017-04-06] MEDS: SUCRALFATE 1 GM TAB PO SCH ×3 (09:29→17:08)
[2017-04-06] MEDS: POTASSIUM CHLORIDE 20 MEQ CONTROLLED RELEASE TAB PO SCH (09:41)
[2017-04-06] MEDS ORDERED: INFLUENZA VIRUS VACCINE (QUADRIVALENT) 0.5 ML SYR IM ONE (10:00)
[2017-04-06 10:02] LABS: HEMATOCRIT 37.2 % (35.0-46.0); MEAN CELL VOLUME 89.5 FL (80.0-100.0); MEAN CORPUSCULAR HEMOGLOBIN 29.8 PG (27.0-34.0); MEAN CORPUSCULAR HGB CONC 33.3 % (32.0-36.0); PLATELET COUNT 269 TH/MM3 (150-450); RED BLOOD COUNT 4.15 MIL/MM3 (4.00-5.30); RED CELL DISTRIBUTION WIDTH 15.7 % (11.6-17.2); REVIEW FLAG FINAL
--- NOTE | 2017-04-06 10:29 | HHI.PR ---
Subjective Remarks doing well post op up in chair requests tylenol 3 Objective Vital Signs Date Time Temp Pulse Resp B/P (MAP) Pulse Ox O2 Delivery O2 Flow Rate FiO2 04/06/17 07:57 97.9 84 17 100/69 (79) 95 04/06/17 04:03 99.5 92 18 118/58 (78) 95 04/06/17 00:38 99.2 95 18 107/54 (71) 94 04/05/17 20:59 101.7 90 18 123/71 (88) 93 04/05/17 18:05 93 21 04/05/17 16:00 97.5 86 18 105/52 (69) 95 04/05/17 12:00 96.5 69 18 108/61 (77) 96 04/05/17 10:35 71 16 131/65 (87) 96 Nasal Cannula 2 I/O 04/05/17 04/05/17 04/05/17 04/06/17 04/06/17 04/06/17 07:00 15:00 23:00 07:00 15:00 23:00 Intake Total 220 ml 1788 ml 490 ml 480 ml Output Total 500 ml 2000 ml 2000 ml 1200 ml Balance -280 ml -212 ml -1510 ml -720 ml Intake Oral 120 ml 480 ml 240 ml 480 ml IV Total 100 ml 1308 ml 250 ml Output Urine Total 500 ml 1800 ml 2000 ml 1200 ml Estimated Blood Loss 200 ml # Bowel Movements 0 0 0 0 Result Diagram: 04/06/1792404/05/17 1558 Procedures orif r hip po day1 Objective Remarks GENERAL: Well-nourished, well-developed patient. SKIN: Warm and dry. HEAD: Normocephalic. EYES: No scleral icterus. No injection or drainage. NECK: Supple, trachea midline. No JVD or lymphadenopathy. CARDIOVASCULAR: Regular rate and rhythm without murmurs, gallops, or rubs. RESPIRATORY: Breath sounds equal bilaterally. No accessory muscle use. GASTROINTESTINAL: Abdomen soft, non-tender, nondistended. EXTREMITIES: No cyanosis, or edema pain r hip. incision dry NEUROLOGICAL: Awake, alert, and oriented x 3. Non-focal. Medications and IVs Inpatient Medications Acetaminophen/ Codeine Phosphate (Tylenol-Codeine #3) 1 tab Q6H PRN PO PAIN SCALE 1 TO 10 Last administered on 04/04/17 17:44; Start 04/04/17 at 16:00; Stop 04/05/17 at 10:43; Status DC Acetaminophen/ Hydrocodone Bitart ([place] 10-325 Mg) 2 tab Q6H PRN PO PAIN SCALE 5 TO 10; Start 04/05/17 at 09:30 Albuterol Sulfate (Ventolin Hfa Inh) 1 puff Q4H PRN INH SHORTNESS OF BREATH; Start 04/04/17 at 14:30 Alprazolam (Xanax) 1 mg Q8H PRN PO anxiety Last administered on 04/04/17 17:43 ; Start 04/04/17 at 16:00 Bisacodyl (Dulcolax Supp) 10 mg DAILY PRN RECTAL CONSTIPATION; Start 04/05/17 at 09:30 Diphenhydramine HCl (Benadryl Inj) 25 mg Q6H PRN IV ITCHING; Start 04/05/17 at 09:30 Enoxaparin Sodium (Lovenox Inj) 30 mg Q24H SQ Last administered on 04/05/17 21 :48; Start 04/05/17 at 22:00 Fluoxetine HCl (PROzac) 40 mg BID PO Last administered on 04/06/17 09:28; Start 04/04/17 at 21:00 Gabapentin (Neurontin) 300 mg QID PO Last administered on 04/06/17 09:29; Start 04/04/17 at 18:00 Hyoscyamine Sulfate (Levsin) 0.125 mg Q6H PO Last administered on 04/06/17 09: 29; Start 04/04/17 at 16:00 Influenza Virus Vaccine (Flu (Quadrivalent) Vaccine Inj) 0.5 ml ONCE ONCE IM Last administered on 04/06/17 09:44; Start 04/06/17 at 10:00; Stop 04/06/17 at 10:01; Status DC IV Flush (NS Flush) 2 ml BID IVF Last administered on 04/06/17 09:28; Start at 21:00 Miscellaneous Information ALL NURSING DEPARTME... 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 Last administered on 04/05/17 13:26; Start 04/05/17 at 09:30 Multivitamins/ Minerals Therapeutic (Theragran M Tab) 1 tab BID PO ; Start 04/06 at 21:00; Stop 06/05/17 at 20:59 Naloxone HCl (Narcan Inj) 0.4 mg UNSCH PRN IV PUSH SEE LABEL COMMENTS; Start at 13:00 Ondansetron HCl (Zofran Inj) 4 mg Q6H PRN IVP NAUSEA OR VOMITING; Start at 09:30 Pantoprazole Sodium (Protonix Inj) 40 mg Q24H IV PUSH Last administered on 04/05 17:04; Start 04/04/17 at 15:00 Pantoprazole Sodium (Protonix) 20 mg DAILY PO Last administered on 04/06/17 09 :29; Start 04/06/17 at 09:00 Potassium Chloride (KCl) 20 meq DAILY PO Last administered on 04/06/17 09:41; Start 04/06/17 at 10:00 Sodium Chloride 1,000 ml @ 100 mls/hr Q10H IV Last administered on 04/05/17 10:00; Start 04/05/17 at 10:00 Sodium Chloride (NS Flush) 2 ml BID IV FLUSH ; Start 04/04/17 at 21:00; Stop at 09:52; Status DC Sucralfate (Carafate) 1 gm TID PO Last administered on 04/06/17 09:29; Start 04/04/17 at 18:00 Tranexamic Acid 543 mg/Sodium Chloride 105.43 ml @ 200 mls/ hr UNSCH IV Last administered on 04/05/17 10:44; Start 04/05/17 at 09:30; Stop 04/05/17 at 11:00 ; Status DC Trazodone HCl (Desyrel) 100 mg HS PO Last administered on 04/05/17 20:41; Start 04/04/17 at 21:00 Vancomycin HCl 1000 mg/Sodium Chloride 250 ml @ 250 mls/hr Q12H IV Last administered on 04/06/17t 09:27; Start 04/05/17 at 21:00; Stop 04/06/17 at 09:59 ; Status DC Zolpidem Tartrate (Ambien) 5 mg HS PRN PO SLEEP; Start 04/05/17 at 09:30 Assessment and Plan Problem List: (1) Closed fracture of right hip requiring operative repair ICD Codes: S72.001A - Fracture of unspecified part of neck of right femur, initial encounter for closed fracture Status: Acute Plan: to or for orifThe exam, history, and the medical decision-making described in the above note were completed with the assistance of the mid-level provider. I reviewed and agree with the findings presented. I attest that I had a [id number] encounter with the patient on the same day, and personally performed and documented my assessment and findings in the medical record. Assessment and Plan [place] to home [place] per pt request Discussed Condition With pt and family Problem Qualifiers (1) Closed fracture of right hip requiring operative repair: Qualified Codes: S72.001A - Fracture of unspecified part of neck of right femur , initial encounter for closed fracture Yuval Betancourt DO Apr 06, 2017 10:29
[2017-04-06 10:31] LABS: BICARBONATE 26.1 MEQ/L (21.0-32.0); POTASSIUM 3.5 MEQ/L (3.5-5.1)
[2017-04-06 11:42] VITALS: BP 109/68; PULSE 92; RESP 17; TEMP 97.7; O2SAT 94
[2017-04-06] MEDS: ACETAMINOPHEN/CODEINE 300 MG/30 MG TAB PO PRN ×2 (12:30→20:00)
[2017-04-06] MEDS: PANTOPRAZOLE SODIUM 40 MG VIAL IV PUSH SCH (15:09)
[2017-04-06 16:00] VITALS: BP 92/53; PULSE 97; RESP 17; TEMP 98.9; O2SAT 94
[2017-04-06] MEDS: traZODone HCL 100 MG TAB PO SCH (20:00)
[2017-04-06] MEDS: MULTIVITAMINS/MINERALS THERAPEUTIC TAB PO SCH (20:00)
[2017-04-06 20:06] VITALS: BP 104/64; PULSE 92; RESP 17; TEMP 99.8; O2SAT 95
[2017-04-06] MEDS: ALPRAZolam 1 MG TAB PO PRN (21:13)
[2017-04-06] MEDS: ENOXAPARIN SODIUM 30 MG/0.3 ML SYRINGE SQ SCH (21:13)
[2017-04-07 00:06] VITALS: BP 90/53; PULSE 91; RESP 17; TEMP 99; O2SAT 94
[2017-04-07] MEDS: HYOSCYAMINE 0.125 MG TAB PO SCH ×4 (02:03→21:52)
[2017-04-07] MEDS: MORPHINE SULFATE 4 MG/ML INJ IV PUSH PRN (02:03)
[2017-04-07] MEDS ORDERED: LACTULOSE SYRUP 20 GM/30 ML CUP PO PRN (04:15)
[2017-04-07] MEDS ORDERED: DOCUSATE SODIUM 50 MG/SENNA 8.6 MG TAB PO PRN (04:15)
[2017-04-07] MEDS: ACETAMINOPHEN/CODEINE 300 MG/30 MG TAB PO PRN ×2 (04:59→16:45)
[2017-04-07] MEDS: MAGNESIUM HYDROXIDE SUSP 30 ML CUP PO PRN ×2 (04:59→16:00)
[2017-04-07 07:12] LABS: HEMATOCRIT 34.6 % (35.0-46.0); MEAN CELL VOLUME 88.6 FL (80.0-100.0); MEAN CORPUSCULAR HEMOGLOBIN 29.1 PG (27.0-34.0); MEAN CORPUSCULAR HGB CONC 32.9 % (32.0-36.0); PLATELET COUNT 266 TH/MM3 (150-450); RED BLOOD COUNT 3.91 MIL/MM3 (4.00-5.30); RED CELL DISTRIBUTION WIDTH 15.7 % (11.6-17.2); REVIEW FLAG FINAL; WHITE BLOOD COUNT 16.4 TH/MM3 (4.0-11.0)
[2017-04-07 07:50] LABS: BICARBONATE 25.4 MEQ/L (21.0-32.0)
[2017-04-07 08:00] VITALS: BP 97/56; PULSE 91; RESP 18; TEMP 98; O2SAT 93
[2017-04-07 08:08] LABS: POTASSIUM 2.9 MEQ/L (3.5-5.1)
[2017-04-07] MEDS: ACETAMINOPHEN/HYDROcodone 325 MG/10 MG TAB PO PRN ×3 (09:05→21:53)
[2017-04-07] MEDS: GABAPENTIN 300 MG CAP PO SCH ×4 (09:06→21:52)
[2017-04-07] MEDS: PANTOPRAZOLE SOD 20 MG DELAYED RELEASE TAB PO SCH (09:06)
[2017-04-07] MEDS: FLUoxetine HCL 20 MG CAP PO SCH ×2 (09:06→21:52)
[2017-04-07] MEDS: SUCRALFATE 1 GM TAB PO SCH ×3 (09:06→16:45)
[2017-04-07] MEDS: POTASSIUM CHLORIDE 20 MEQ CONTROLLED RELEASE TAB PO SCH ×2 (09:06→21:52)
[2017-04-07] MEDS: MULTIVITAMINS/MINERALS THERAPEUTIC TAB PO SCH ×2 (09:06→21:00)
[2017-04-07] MEDS: SODIUM CHLORIDE 0.9% FLUSH 5 ML FLUSH IVF SCH ×2 (09:12→21:00)
[2017-04-07 12:00] VITALS: BP 91/55; PULSE 88; RESP 18; TEMP 98.2; O2SAT 94
[2017-04-07] MEDS: SODIUM CHLOR 0.9% 1000 ML INJ 1,000 ML IV SCH ×2 (12:00→21:53)
--- NOTE | 2017-04-07 13:18 | PD.ORT.PN ---
Subjective Post Op Day #: 2 Subjective Remarks leg is painful Objective Vitals Vital Signs Date Time Temp Pulse Resp B/P (MAP) Pulse Ox O2 Delivery O2 Flow Rate FiO2 04/07/17 12:00 98.2 88 18 91/55 (67) 94 04/07/17 08:00 98.0 91 18 97/56 (70) 93 04/07/17 00:06 99.0 91 17 90/53 (65) 94 04/06/17 20:06 99.8 92 17 104/64 (77) 95 04/06/17 16:00 98.9 97 17 92/53 (66) 94 I/O 04/06/17 04/06/17 04/06/17 04/07/17 04/07/17 04/07/17 07:00 15:00 23:00 07:00 15:00 23:00 Intake Total 480 ml 720 ml 480 ml 480 ml Output Total 1200 ml 550 ml Balance -720 ml 170 ml 480 ml 480 ml Intake Oral 480 ml 720 ml 480 ml 480 ml Output Urine Total 1200 ml 550 ml # Voids 2 2 3 # Bowel Movements 0 0 0 0 Result Diagram: 04/07/17 0653 04/07/17 0653 Objective Remarks in chair, nad dressing c/d/i neg homans nvi Assessment & Plan Ortho Post Op Day #: 2 Problem List: Assessment and Plan s/p R Bipolar POD#1 wbat posterior hip precautions ok to maintain dressing unless saturated lovenox d/c planning f/up ortho 2 weeks Tre Lizarraga Apr 07, 2017 13:18
--- NOTE | 2017-04-07 15:40 | HHI.PR ---
Subjective Remarks Patient presented to the ED after a fall and was found to have hip fracture. Objective Vital Signs Date Time Temp Pulse Resp B/P (MAP) Pulse Ox O2 Delivery O2 Flow Rate FiO2 04/07/17 12:00 98.2 88 18 91/55 (67) 94 04/07/17 08:00 98.0 91 18 97/56 (70) 93 04/07/17 00:06 99.0 91 17 90/53 (65) 94 04/06/17 20:06 99.8 92 17 104/64 (77) 95 04/06/17 16:00 98.9 97 17 92/53 (66) 94 I/O 04/06/17 04/06/17 04/06/17 04/07/17 04/07/17 04/07/17 07:00 15:00 23:00 07:00 15:00 23:00 Intake Total 480 ml 720 ml 480 ml 480 ml 600 ml Output Total 1200 ml 550 ml Balance -720 ml 170 ml 480 ml 480 ml 600 ml Intake Oral 480 ml 720 ml 480 ml 480 ml 600 ml Output Urine Total 1200 ml 550 ml # Voids 2 2 3 3 # Bowel Movements 0 0 0 0 0 Result Diagram: 04/07/17 0653 04/07/17 0653 Imaging Last 72 hours Impressions Hip and Pelvis X-Ray 04/05/17 0000 Signed Impressions: Service Date/Time: Wednesday, April 05, 2017 09:59 - CONCLUSION: Good placement of the bipolar hip prosthesis on the right side. Samy Alvarez MD Procedures ORIF right hip S/P surgical repair. Other Results Current Medications Medications (Trade) Dose Ordered Sig/Alondra Route Start Time Stop Time Status Last Admin (Narcan Inj) 0.4 mg UNSCH PRN IV PUSH 04/04/17 13:00 (Ventolin Hfa Inh) 1 puff Q4H PRN INH 04/04/17 14:30 (PROzac) 40 mg BID PO 04/04/17 21:00 04/07/17 09:06 (Levsin) 0.125 mg Q6H PO 04/04/17 16:00 04/07/17 09:05 (Desyrel) 100 mg HS PO 04/04/17 21:00 04/06/17 20:00 (Carafate) 1 gm TID PO 04/04/17 18:00 04/07/17 13:23 (Xanax) 1 mg Q8H PRN PO 04/04/17 16:00 04/06/17 21:13 (Neurontin) 300 mg QID PO 04/04/17 18:00 04/07/17 13:23 (Morphine Inj) 2 mg Q3H PRN IV 04/04/17 17:45 04/06/17 18:56 (Protonix) 20 mg DAILY PO 04/06/17 09:00 04/07/17 09:06 Sodium Chloride 1,000 ml @ 100 mls/hr Q10H IV 04/05/17 10:00 04/05/17 10:00 (NS Flush) 2 ml UNSCH PRN IVF 04/05/17 09:30 04/06/17 18:56 (NS Flush) 2 ml BID IVF 04/05/17 21:00 04/07/17 09:12 (Lovenox Inj) 30 mg Q24H SQ 04/05/17 22:00 04/06/17 21:13 (Morphine Inj) 3 mg Q3H PRN IV PUSH 04/05/17 09:30 04/07/17 02:03 ([place] 10-325 Mg) 1 tab Q4H PRN PO 04/05/17 09:30 04/07/17 13:23 ([place] 10-325 Mg) 2 tab Q6H PRN PO 04/05/17 09:30 (Theragran M Tab) 1 tab BID PO 04/06/17 21:00 06/05/17 20:59 04/07/17 09:06 (Zofran Inj) 4 mg Q6H PRN IVP 04/05/17 09:30 (Ambien) 5 mg HS PRN PO 04/05/17 09:30 (Benadryl Inj) 25 mg Q6H PRN IV 04/05/17 09:30 (Tylenol-Codeine #3) 2 tab Q4H PRN PO 04/06/17 10:30 04/07/17 04:59 (Shiela-Colace) 1 tab BID PRN PO 04/07/17 04:15 04/07/17 04:59 (Milk Of Magnesia Liq) 30 ml BID PRN PO 04/07/17 04:15 04/07/17 04:59 (Lactulose Liq) 30 ml Q24H PRN PO 04/07/17 04:15 04/07/17 09:05 (Dulcolax Supp) 10 mg Q24H PRN RECTAL 04/07/17 04:15 (KCl) 20 meq BID PO 04/07/17 21:00 Objective Remarks Exam reveals she is awake and alert. She has reduced ROM right hip. Lungs are clear and the HR is regular without M, R, or G. Abd is soft and nontender. Medications and IVs Current Medications Medications (Trade) Dose Ordered Sig/Alondra Route Start Time Stop Time Status Last Admin (Narcan Inj) 0.4 mg UNSCH PRN IV PUSH 04/04/17 13:00 (Ventolin Hfa Inh) 1 puff Q4H PRN INH 04/04/17 14:30 (PROzac) 40 mg BID PO 04/04/17 21:00 04/07/17 09:06 (Levsin) 0.125 mg Q6H PO 04/04/17 16:00 04/07/17 09:05 (Desyrel) 100 mg HS PO 04/04/17 21:00 04/06/17 20:00 (Carafate) 1 gm TID PO 04/04/17 18:00 04/07/17 13:23 (Xanax) 1 mg Q8H PRN PO 04/04/17 16:00 04/06/17 21:13 (Neurontin) 300 mg QID PO 04/04/17 18:00 04/07/17 13:23 (Morphine Inj) 2 mg Q3H PRN IV 04/04/17 17:45 04/06/17 18:56 (Protonix) 20 mg DAILY PO 04/06/17 09:00 04/07/17 09:06 Sodium Chloride 1,000 ml @ 100 mls/hr Q10H IV 04/05/17 10:00 04/05/17 10:00 (NS Flush) 2 ml UNSCH PRN IVF 04/05/17 09:30 04/06/17 18:56 (NS Flush) 2 ml BID IVF 04/05/17 21:00 04/07/17 09:12 (Lovenox Inj) 30 mg Q24H SQ 04/05/17 22:00 04/06/17 21:13 (Morphine Inj) 3 mg Q3H PRN IV PUSH 04/05/17 09:30 04/07/17 02:03 ([place] 10-325 Mg) 1 tab Q4H PRN PO 04/05/17 09:30 04/07/17 13:23 ([place] 10-325 Mg) 2 tab Q6H PRN PO 04/05/17 09:30 (Theragran M Tab) 1 tab BID PO 04/06/17 21:00 06/05/17 20:59 04/07/17 09:06 (Zofran Inj) 4 mg Q6H PRN IVP 04/05/17 09:30 (Ambien) 5 mg HS PRN PO 04/05/17 09:30 (Benadryl Inj) 25 mg Q6H PRN IV 04/05/17 09:30 (Tylenol-Codeine #3) 2 tab Q4H PRN PO 04/06/17 10:30 04/07/17 04:59 (Shiela-Colace) 1 tab BID PRN PO 04/07/17 04:15 04/07/17 04:59 (Milk Of Magnesia Liq) 30 ml BID PRN PO 04/07/17 04:15 04/07/17 04:59 (Lactulose Liq) 30 ml Q24H PRN PO 04/07/17 04:15 04/07/17 09:05 (Dulcolax Supp) 10 mg Q24H PRN RECTAL 04/07/17 04:15 (KCl) 20 meq BID PO 04/07/17 21:00 Assessment and Plan Problem List: (1) Closed fracture of right hip requiring operative repair ICD Codes: S72.001A - Fracture of unspecified part of neck of right femur, initial encounter for closed fracture Status: Acute Plan: Cont therapy and mobilize per surgery. (2) Hypokalemia ICD Codes: E87.6 - Hypokalemia Status: Acute Plan: KCL doubled today and repeat lytes ordered for tomorrow. Assessment and Plan Cont analgesics and attempt to wean IV MS S/P ORIF right hip. Therapy as tolerated per surgery. F/U pending K on higher dose KCL. Discussed Condition With Patient Discharge Planning Home with [facility]. Problem Qualifiers (1) Closed fracture of right hip requiring operative repair: Qualified Codes: S72.001D - Fracture of unspecified part of neck of right femur , subsequent encounter for closed fracture with routine healing Jason Pimentel Apr 07, 2017 15:40
[2017-04-07 16:00] VITALS: BP 96/55; PULSE 87; RESP 18; TEMP 97.9; O2SAT 93
[2017-04-07] MEDS: ALPRAZolam 1 MG TAB PO PRN (16:45)
[2017-04-07] MEDS: BISACODYL 10 MG SUPP RECTAL PRN ×2 (16:45→19:10)
[2017-04-07 20:06] VITALS: BP 90/54; PULSE 82; RESP 16; TEMP 98.6; O2SAT 94
[2017-04-07] MEDS: ENOXAPARIN SODIUM 30 MG/0.3 ML SYRINGE SQ SCH (21:50)
[2017-04-07] MEDS: traZODone HCL 100 MG TAB PO SCH (21:51)
[2017-04-08] VITALS (9 sets, daily range): BP systolic 72–97; BP diastolic 44–59; PULSE 81–90; RESP 16–18; TEMP 96.7–98.8; O2SAT 93–95
[2017-04-08] MEDS: ACETAMINOPHEN/HYDROcodone 325 MG/10 MG TAB PO PRN (06:09)
[2017-04-08] MEDS: HYOSCYAMINE 0.125 MG TAB PO SCH ×4 (06:09→21:54)
[2017-04-08 08:26] LABS: MEAN CELL VOLUME 89.7 FL (80.0-100.0); MEAN CORPUSCULAR HEMOGLOBIN 29.3 PG (27.0-34.0); MEAN CORPUSCULAR HGB CONC 32.6 % (32.0-36.0); PLATELET COUNT 253 TH/MM3 (150-450); RED BLOOD COUNT 3.68 MIL/MM3 (4.00-5.30); RED CELL DISTRIBUTION WIDTH 15.8 % (11.6-17.2); REVIEW FLAG FINAL; WHITE BLOOD COUNT 10.2 TH/MM3 (4.0-11.0)
--- NOTE | 2017-04-08 08:35 | PD.ORT.PN ---
Subjective Post Op Day #: 3 Subjective Remarks feeling better. hypotensive. denies cp and sob. Objective Vitals Vital Signs Date Time Temp Pulse Resp B/P (MAP) Pulse Ox O2 Delivery O2 Flow Rate FiO2 04/08/17 04:30 97.7 81 16 92/50 (64) 94 04/08/17 00:45 98.8 88 16 92/51 (65) 94 04/07/17 20:06 98.6 82 16 90/54 (66) 94 04/07/17 18:58 Room Air 04/07/17 16:00 97.9 87 18 96/55 (69) 93 04/07/17 12:00 98.2 88 18 91/55 (67) 94 I/O 04/07/17 04/07/17 04/07/17 04/08/17 04/08/17 04/08/17 07:00 15:00 23:00 07:00 15:00 23:00 Intake Total 480 ml 600 ml 480 ml 240 ml Balance 480 ml 600 ml 480 ml 240 ml Intake Oral 480 ml 600 ml 480 ml 240 ml # Voids 3 3 2 2 # Bowel Movements 0 0 2 0 Result Diagram: 04/08/17 0640 04/07/17 0653 Objective Remarks in bed, nad dressing c/d/i neg homans nvi Assessment & Plan Ortho Post Op Day #: 3 Problem List: Assessment and Plan s/p R Bipolar POD#3 wbat posterior hip precautions ok to maintain dressing unless saturated lovenox d/c planning ortho stable and cleared for d/c f/up ortho 2 weeks Tre Lizarraga Apr 08, 2017 08:35
[2017-04-08 09:05] LABS: BICARBONATE 22.5 MEQ/L (21.0-32.0)
[2017-04-08] MEDS: FLUoxetine HCL 20 MG CAP PO SCH ×2 (09:52→21:53)
[2017-04-08] MEDS: PANTOPRAZOLE SOD 20 MG DELAYED RELEASE TAB PO SCH (09:52)
[2017-04-08] MEDS: SUCRALFATE 1 GM TAB PO SCH ×3 (09:52→17:09)
[2017-04-08] MEDS: POTASSIUM CHLORIDE 20 MEQ CONTROLLED RELEASE TAB PO SCH ×2 (09:52→21:54)
[2017-04-08] MEDS: GABAPENTIN 300 MG CAP PO SCH ×4 (09:52→21:54)
[2017-04-08] MEDS: SODIUM CHLORIDE 0.9% FLUSH 5 ML FLUSH IVF SCH ×2 (09:55→21:00)
[2017-04-08] MEDS: ALPRAZolam 1 MG TAB PO PRN (09:56)
[2017-04-08] MEDS: SODIUM CHLOR 0.9% 1000 ML INJ 1,000 ML IV SCH ×2 (09:58→17:10)
[2017-04-08] MEDS: MULTIVITAMINS/MINERALS THERAPEUTIC TAB PO SCH ×2 (09:58→21:00)
--- NOTE | 2017-04-08 10:59 | MP ---
cc: PANCHITO DELACRUZ M.D. DATE OF SURGERY 04/05/2017 PREOPERATIVE DIAGNOSIS Right femoral neck fracture. POSTOPERATIVE DIAGNOSIS Right femoral neck fracture. PROCEDURE Right bipolar hemiarthroplasty. SURGEON Dr. Panchito Delacruz HYDRAULIC LIFT DRIVER Jeffery Lizarraga PA-C ANESTHESIA General. ESTIMATED BLOOD LOSS 100 cc. COMPLICATIONS None. IMPLANTS USED DePuy Corail size 13 Press-Fit standard offset femoral stem. Size 45 cup, 28 head, +5 neck. JUSTIFICATION The patient is a 57-year female who fell sustaining a displaced right femoral neck fracture. She was taken to [facility] Emergency Room. X-rays confirmed the above-named findings. Orthopedic Service was consulted. The patient was counseled as to the risks, benefits and alternatives to the above-named, proposed surgical procedure. She did wish to proceed with surgery. PROCEDURE IN DETAIL A written consent was obtained. The patient was identified by name, taken to the operating room, placed in the supine position. General anesthesia was administered as well as 1 gram of IV Ancef and 1 gram of IV vancomycin. The patient was carefully turned to the left lateral decubitus position. A lateral arm roll was placed. All bony prominences and pressure points were well padded. The right hip and right lower extremity were prepped and draped using isopropyl alcohol, Hibiclens solution and Chloraprep solution. After time-out was performed a longitudinal incision made at the posterolateral aspect of the right hip. The fascial layer was incised. The piriformis and capsule was incised and tagged with #2 FiberWire suture. The fractured of the femoral head and neck component was removed with the assistance of an oscillating saw as well as a rongeur and power corkscrew. A box cutting osteotome was used to gain entrance into the intramedullary canal of the femur. This was followed by canal finder, lateralizing reamers. Sequential broaching up size 30 was followed by calcar planer. Trial head and neck combinations were evaluated and subsequent implanted. With the current implants the leg could achieve full extension and external rotation without evidence of anterior instability of impingement. The hip could be flexed to 90 degrees and internally rotated 70 degrees without evidence of posterior instability. Clinically the leg lengths were felt relatively symmetric and soft tissue tension felt appropriate. The surgical wound was thoroughly irrigated with sterile saline solution. The pyriformis and capsule was repaired with #2 FiberWire suture, the fascial layer with #1 Vicryl suture, the subcutaneous layer with 2-0 Vicryl suture. The skin was closed with Dermabond. Sterile dressing applied. The patient tolerated the procedure with no intraoperative complication noted. Jeffery Lizarraga physician physiotherapy assistant certified was present during the entire procedure. The medical necessity of the physician physiotherapy assistant was indicated due to the complexity of the procedure. He assisted with appropriate manipulation of the leg and also retraction of muscle, tendon and bone and neurovascular structures. He assisted with preparation of bone and also implantation of the prosthetic replacement. Panchito Delacruz MD JWM/SSB /9:18 AM /10:46 AM
[2017-04-08] MEDS: ACETAMINOPHEN/CODEINE 300 MG/30 MG TAB PO PRN ×3 (13:15→21:55)
--- NOTE | 2017-04-08 13:43 | HHI.PR ---
Subjective Remarks Patient is alert and oriented. B/p is noted to be low at 72/45. Patient is asymptomatic. Objective Vital Signs Date Time Temp Pulse Resp B/P (MAP) Pulse Ox O2 Delivery O2 Flow Rate FiO2 04/08/17 13:12 97/52 (67) 04/08/17 11:49 96.7 84 18 81/52 (62) 93 04/08/17 09:35 80/52 (61) 04/08/17 08:00 97.7 90 18 72/44 (53) 94 04/08/17 04:30 97.7 81 16 92/50 (64) 94 04/08/17 00:45 98.8 88 16 92/51 (65) 94 04/07/17 20:06 98.6 82 16 90/54 (66) 94 04/07/17 18:58 Room Air 04/07/17 16:00 97.9 87 18 96/55 (69) 93 I/O 04/07/17 04/07/17 04/07/17 04/08/17 04/08/17 04/08/17 06:59 14:59 22:59 06:59 14:59 22:59 Intake Total 480 ml 600 ml 480 ml 240 ml Balance 480 ml 600 ml 480 ml 240 ml Intake Oral 480 ml 600 ml 480 ml 240 ml # Voids 3 3 2 2 # Bowel Movements 0 0 2 0 Result Diagram: 04/08/17 0640 04/08/17 0640 Procedures ORIF right hip S/P surgical repair. Objective Remarks GENERAL: alert and oriented SKIN: Warm and dry. Dressing on right hip HEAD: Normocephalic. EYES: No scleral icterus. No injection or drainage. NECK: Supple, trachea midline. No JVD or lymphadenopathy. CARDIOVASCULAR: Regular rate and rhythm without murmurs, gallops, or rubs. RESPIRATORY: Breath sounds equal bilaterally. No accessory muscle use. GASTROINTESTINAL: Abdomen soft, non-tender, nondistended. MUSCULOSKELETAL: No cyanosis, or edema. BACK: Nontender without obvious deformity. No CVA tenderness. Medications and IVs Current Medications Medications (Trade) Dose Ordered Sig/Alondra Route Start Time Stop Time Status Last Admin (Narcan Inj) 0.4 mg UNSCH PRN IV PUSH 04/04/17 13:00 (Ventolin Hfa Inh) 1 puff Q4H PRN INH 04/04/17 14:30 (PROzac) 40 mg BID PO 04/04/17 21:00 04/08/17 09:52 (Levsin) 0.125 mg Q6H PO 04/04/17 16:00 04/08/17 09:52 (Desyrel) 100 mg HS PO 04/04/17 21:00 04/07/17 21:51 (Carafate) 1 gm TID PO 04/04/17 18:00 04/08/17 13:13 (Xanax) 1 mg Q8H PRN PO 04/04/17 16:00 04/08/17 09:56 (Neurontin) 300 mg QID PO 04/04/17 18:00 04/08/17 13:13 (Morphine Inj) 2 mg Q3H PRN IV 04/04/17 17:45 04/06/17 18:56 (Protonix) 20 mg DAILY PO 04/06/17 09:00 04/08/17 09:52 Sodium Chloride 1,000 ml @ 100 mls/hr Q10H IV 04/05/17 10:00 04/08/17 09:58 (NS Flush) 2 ml UNSCH PRN IVF 04/05/17 09:30 04/06/17 18:56 (NS Flush) 2 ml BID IVF 04/05/17 21:00 04/07/17 21:00 (Lovenox Inj) 30 mg Q24H SQ 04/05/17 22:00 04/07/17 21:50 (Morphine Inj) 3 mg Q3H PRN IV PUSH 04/05/17 09:30 04/07/17 02:03 ([place] 10-325 Mg) 1 tab Q4H PRN PO 04/05/17 09:30 04/07/17 13:23 ([place] 10-325 Mg) 2 tab Q6H PRN PO 04/05/17 09:30 04/08/17 06:09 (Theragran M Tab) 1 tab BID PO 04/06/17 21:00 06/05/17 20:59 04/07/17 09:06 (Zofran Inj) 4 mg Q6H PRN IVP 04/05/17 09:30 04/07/17 21:53 (Ambien) 5 mg HS PRN PO 04/05/17 09:30 (Benadryl Inj) 25 mg Q6H PRN IV 04/05/17 09:30 (Tylenol-Codeine #3) 2 tab Q4H PRN PO 04/06/17 10:30 04/08/17 13:15 (Shiela-Colace) 1 tab BID PRN PO 04/07/17 04:15 04/07/17 04:59 (Milk Of Magnesia Liq) 30 ml BID PRN PO 04/07/17 04:15 04/07/17 16:00 (Lactulose Liq) 30 ml Q24H PRN PO 04/07/17 04:15 04/07/17 09:05 (Dulcolax Supp) 10 mg Q24H PRN RECTAL 04/07/17 04:15 04/07/17 19:10 (KCl) 20 meq BID PO 04/07/17 21:00 04/08/17 09:52 Assessment and Plan Problem List: (1) Hypotension ICD Codes: I95.9 - Hypotension, unspecified (2) Closed fracture of midcervical section of femur ICD Codes: S72.033A - Displaced midcervical fracture of unspecified femur, initial encounter for closed fracture (3) Hypokalemia ICD Codes: E87.6 - Hypokalemia Status: Acute Assessment and Plan 04/08/17 S/P R Bipolar: POD#3 dressing on dry and intact. Lovenox for DVT prophylaxis. [place] for pain Hypokalemia: Resolved on replacement with Potassium of 4 Insomnia; On trazodone nightly slept well last night Hypotension: B/P 72/45 this morning. 250 ml bolus of IVF given with improvement and b/p of 97/52 which is patients baseline. Will encourage fluids Discharge planned for tomorrow. cleared per ortho. I and the FELLMONGERY WORKER have both examined this patient and reviewed this note and I agree with these findings and plan of care. Naina Holder. FELLMONGERY WORKER Apr 08, 2017 13:43
[2017-04-08] MEDS: ENOXAPARIN SODIUM 30 MG/0.3 ML SYRINGE SQ SCH (21:53)
[2017-04-08] MEDS: traZODone HCL 100 MG TAB PO SCH (21:55)
[2017-04-09 00:33] VITALS: BP 79/52
[2017-04-09] MEDS: SODIUM CHLOR 0.9% 1000 ML INJ 1,000 ML IV SCH (04:00)
[2017-04-09 04:25] VITALS: BP 115/75; PULSE 84; RESP 17; TEMP 98.1; O2SAT 93
[2017-04-09] MEDS: HYOSCYAMINE 0.125 MG TAB PO SCH ×2 (05:32→09:57)
[2017-04-09] MEDS: ACETAMINOPHEN/CODEINE 300 MG/30 MG TAB PO PRN ×3 (05:32→13:39)
[2017-04-09 08:00] VITALS: BP 92/58; PULSE 85; RESP 18; TEMP 97.5; O2SAT 94
[2017-04-09] MEDS: MULTIVITAMINS/MINERALS THERAPEUTIC TAB PO SCH (09:00)
[2017-04-09] MEDS: SODIUM CHLORIDE 0.9% FLUSH 5 ML FLUSH IVF SCH (09:00)
[2017-04-09] MEDS: FLUoxetine HCL 20 MG CAP PO SCH (09:57)
[2017-04-09] MEDS: POTASSIUM CHLORIDE 20 MEQ CONTROLLED RELEASE TAB PO SCH (09:57)
[2017-04-09] MEDS: SUCRALFATE 1 GM TAB PO SCH ×2 (09:57→13:38)
[2017-04-09] MEDS: PANTOPRAZOLE SOD 20 MG DELAYED RELEASE TAB PO SCH (09:57)
[2017-04-09] MEDS: GABAPENTIN 300 MG CAP PO SCH ×2 (09:58→13:38)
[2017-04-09 12:00] VITALS: BP 97/57; PULSE 85; RESP 18; TEMP 97.2; O2SAT 93
--- NOTE | 2017-04-09 12:51 | HHI.DS ---
Discharge Summary Admission Date Apr 04, 2017 at 12:22 Discharge Date: Apr 09, 2017 Admitting Diagnosis R hip fx (1) Closed fracture of right hip requiring operative repair ICD Codes: S72.001A - Fracture of unspecified part of neck of right femur, initial encounter for closed fracture Status: Acute (2) Hypotension ICD Codes: I95.9 - Hypotension, unspecified (3) Tachypnea ICD Codes: R06.82 - Tachypnea, not elsewhere classified Status: Acute Procedures ORIF right hip S/P surgical repair. Brief History This patient is a 57-year-old female who fell yesterday after a tripping injury sustaining a complex injury to the right hip. She had the acute onset of severe pain in regards to right hip with inability to stand, ambulate or bear weight. She states she landed on the right hip.She presented [facility] emergency room after the paramedics brought her in pain is moderate severe worsens with any movement. No numbness,tingling. X-rays confirm evidence of displaced right femoral neck fracture. CBC/BMP: 04/08/17 0640 04/08/17 0640 Significant Findings Laboratory Tests Test 04/07/17 06:53 04/08/17 06:40 White Blood Count 16.4 TH/MM3 (4.0-11.0) Red Blood Count 3.91 MIL/MM3 (4.00-5.30) 3.68 MIL/MM3 (4.00-5.30) Hemoglobin 11.4 GM/DL (11.6-15.3) 10.8 GM/DL (11.6-15.3) Hematocrit 34.6 % (35.0-46.0) 33.0 % (35.0-46.0) Blood Urea Nitrogen 4 MG/DL (7-18) 6 MG/DL (7-18) Creatinine 0.49 MG/DL (0.50-1.00) Random Glucose 118 MG/DL (74-106) 120 MG/DL (74-106) Calcium Level 8.3 MG/DL (8.5-10.1) 8.2 MG/DL (8.5-10.1) Sodium Level 135 MEQ/L (136-145) Potassium Level 2.9 MEQ/L (3.5-5.1) PE at Discharge GENERAL: alert and oriented SKIN: Warm and dry. Dressing on right hip HEAD: Normocephalic. EYES: No scleral icterus. No injection or drainage. NECK: Supple, trachea midline. No JVD or lymphadenopathy. CARDIOVASCULAR: Regular rate and rhythm without murmurs, gallops, or rubs. RESPIRATORY: Breath sounds equal bilaterally. No accessory muscle use. GASTROINTESTINAL: Abdomen soft, non-tender, nondistended. MUSCULOSKELETAL: No cyanosis, or edema. BACK: Nontender without obvious deformity. No CVA tenderness. Hospital Course This patient is a 57-year-old female who fell yesterday after a tripping injury sustaining a complex injury to the right hip. She had the acute onset of severe pain in regards to right hip with inability to stand, ambulate or bear weight. She states she landed on the right hip.She presented [facility] emergency room after the paramedics brought her in pain is moderate severe worsens with any movement. No numbness,tingling. X-rays confirm evidence of displaced right femoral neck fracture. She is S/P R Bipolar: POD# 4 dressing on dry and intact. Lovenox for DVT prophylaxis. Tylenol # 3 fro pain. Her hospitalization course she was treated for insomnia, hypokalemia, and hypotension which has now resolved. She is discharged home with follow up appt at Dr. Santos in 1 week. I and the TOOL SMITH have both examined this patient and reviewed this note and I agree with these findings and plan of care. Yuval Betancourt DO Discharge Disposition: Discharge Home Discharge Instructions DIET: Follow Instructions for: As Tolerated, No Restrictions Activities you can perform: Weight Bearing as Erica Follow up Referrals: PCP Follow-up - 1 Week @ [place] FridayApril 16 at 11:30 New Medications: Aspirin (Aspirin Low Dose) 81 Mg Chew 81 MG CHEW DAILY for Prevent Blood Clot for 30 Days, #30 TAB 0 Refills Enoxaparin Inj (Lovenox Inj) 30 Mg/0.3 Ml Syr 30 MG SQ DAILY for Blood Clot Prevention, #7 SYRINGE 0 Refills Hydrocodone-Acetaminophen ([place]) 7.5-325 mg Tab 1-2 TAB PO Q6H PRN for PAIN, #90 TAB 0 Refills Naina Ba Apr 09, 2017 12:51
== END 2017-04-09 13:49 | disposition home or self-care (01) | DRG 470 ==
LOC: NEPE 10:13 → NEDA 12:22 → N06B 14:33
PROVIDERS: ADMIT Family Medicine; ATTEND Family Medicine
PROC: 0SRR01A Replacement of Right Hip Joint, Femoral Surface with Metal Synthetic Substitute, Uncemented, Open Approach (ICD-10-PCS; principal; 2017-04-05 07:56)
DX: S72.031A Displaced midcervical fracture of right femur, initial encounter for closed fracture (principal); E87.0 Hyperosmolality and hypernatremia; I95.9 Hypotension, unspecified; E83.51 Hypocalcemia; J44.9 Chronic obstructive pulmonary disease, unspecified; F41.9 Anxiety disorder, unspecified; W01.0XXA Fall on same level from slipping, tripping and stumbling without subsequent striking against object, initial encounter; Y93.02 Activity, running; K21.9 Gastro-esophageal reflux disease without esophagitis; M79.7 Fibromyalgia; F43.10 Post-traumatic stress disorder, unspecified; F17.210 Nicotine dependence, cigarettes, uncomplicated; E87.6 Hypokalemia; G47.00 Insomnia, unspecified; K22.70 Barrett's esophagus without dysplasia; R06.82 Tachypnea, not elsewhere classified; Z85.028 Personal history of other malignant neoplasm of stomach; Z79.82 Long term (current) use of aspirin; Z23 Encounter for immunization; Y92.013 Bedroom of single-family (private) house as the place of occurrence of the external cause
CPT/HCPCS: 51702; 71010; 73502; 76937; 80048; 80053; 84132; 85025; 85027; 85610; 85730; 90471; 90686; 93005; 94150; C1776; C9113; G0008; J0690; J1580; J1650; J2250; J2270; J2405; J2710; J3010; J3370; J3480; J7030; J7050; L1830; Q2038